=== PATIENT | male | born 1940 | race Caucasian/White ===

== ENCOUNTER 2020-10-20 11:12 | Inpatient (IN) | payer MEDICARE, OTHER ==
--- OUTSIDE RECORDS SUMMARY | 2020-10-20 14:55 | XMSREPORT ---
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 hydroCHLOROthiazide 25 mg tablet Take 1 tablet (25 mg) by mouth 1 time per day 90 tablet 2 metFORMIN (GLUCOPHAGE) 1000 MG tablet Take 1 tablet (1,000 mg) by mouth 2 times a day with tablet 0 oxyCODONE (OXY-IR) 5 mg tablet (immediate release) 1 tab for pain (4-7) q 4 hrs prn Or 2 tabs for pain (8-10) q4h prn pain 60 tablet 0 gabapentin (NEURONTIN) 300 mg capsule Take 1 capsule (300 mg) by mouth 3 times a day 90 capsule 2 tiZANidine (ZANAFLEX) 4 mg tablet Take 1 tablet (4 mg) by mouth at bedtime as needed for muscle spasm 90 tablet 4 metoprolol tartrate (LOPRESSOR) 50 mg tablet Take 1 tablet (50 mg) by mouth 2 times a day 180 tablet 1 atorvaSTATin (LIPITOR) 20 mg tablet Take 1 tablet (20 mg) by mouth every night at bedtime 90 tablet 1 glipiZIDE (GLUCOTROL) 10 mg tablet Take 1 tablet (10 mg) by mouth 1 time a day with breakfast 90tablet 1 amLODIPine (NORVASC) 5 mg tablet Take 1 tablet (5 mg) by mouth 1 time a day in the evening TAKE 1 TABLET BY MOUTH ONCE DAILY IN THE EVENING 90 tablet 1 No facility-administered medications prior to visit. Allergies No Known Allergies ROS Review of Systems Constitutional: Negative. HENT: Negative. Eyes: Negative. Respiratory: Negative. Cardiovascular: Negative. Gastrointestinal: Negative. Endocrine: Negative. Genitourinary: Negative. Musculoskeletal: Positive for arthralgias. Allergic/Immunologic: Negative. Neurological: Negative. Hematological: Negative. Psychiatric/Behavioral: Negative. Physical / Results BP 120/70 Pulse 72 Temp 97.3 F (36.3 C) (Temporal) Ht 1.803 m (5' 11") Wt 122.3 kg (269 lb 11.2 oz) BMI 37.62 kg/m2|| Physical Exam Constitutional: Appearance: Normal appearance. He is obese. HENT: Right Ear: Tympanic membrane normal. Left Ear: Tympanic membrane normal. Mouth/Throat: Mouth: Mucous membranes are moist. Cardiovascular: Rate and Rhythm: Normal rate and regular rhythm. Pulses: Dorsalis pedis pulses are 1+ on the right side and 1+ on the left side. Posterior tibial pulses are 1+ on the right side and 1+ on the left side. Pulmonary: Effort: Pulmonary effort is normal. Breath sounds: Normal breath sounds. Musculoskeletal: Right foot: No deformity. Left foot: No deformity. Feet: Right foot: Protective Sensation: 5 sites tested. 5 sites sensed. Skin integrity: Skin integrity normal. Left foot: Protective Sensation: 5 sites tested. 5 sites sensed. Skin integrity: Skin integrity normal. Skin: Comments: 2 small abrasions L thigh Neurological: General: No focal deficit present. Mental Status: He is alert. Diabetes foot exam Right foot Dorsalis pedis pulse-decreased Posterior tibial pulse-decreased Monofilament test-present Neuro vibratory sense-present Left foot Dorsalis pedis pulse-normal Posterior tibial pulse-decreased Monofilament test-present Neuro vibratory sense-present documented in this encounter Consult Notes Cynthia Sinha APRN-CNP - 10/18/2020 10:01 AM CDTAssociated Order(s): CONSULT INTERNAL MEDICINE Images from the original note were not included. HOSPITAL CONSULT NOTE Patient ID: Bakari Arroyo is a 80yr male. PCP: Chavo Lazar MD Attending Provider: Domingo Alexis MD CONSULT INTERNAL MEDICINE Consult performed by: Cynthia Sinha APRN-CNP Consult ordered by: Ramirez Sanders PA-C Impression / Plan #Diabetes mellitus type 2 Hold Metformin and glipizide while in the hospital Low-dose sliding scale insulin 3 times daily with meals, blood sugars before meals and at bedtime Hypoglycemia protocol Last hemoglobin A1c 7.6 on 09/30/2020 #Hypertension Continue metoprolol, hold if systolic blood pressure less than 100 or heart rate less than 60 Continue amlodipine, hold if systolic blood pressure less than 120 Hold lisinopril and hydrochlorothiazide until a.m. labs #History of DVT #Status post left total hip arthroplasty Managed by orthopedics Eliquis 2.5 mg twice daily for 70 doses for DVT prophylaxis per orthopedic preference Tylenol and tramadol scheduled for pain, oxycodone as needed Hemoglobin in a.m., preop hemoglobin 13.8 PT/OT to see Case management to assist with discharge planning. Patient plans to discharge home with his daughter. #Chronic back pain status post L5-S1 anterior lumbar interbody fusion with fusion revision #Hyperlipidemia Continue Lipitor #Obesity BMI 37.94 Chief Complaint / HPI HPI Bakari Arroyo is admitted under the orthopedic service status post left total hip arthroplasty on 10/18/2020. General anesthesia with EBL 250ml . Internal medicine consultation requested to assistwith co-managment postoperatively. Bakari was seen in the recovery room. He is drowsy but able to open his eyes to verbal stimuli. He currently denies any pain, chest pain, shortness of breath, nausea, and headache. He has not voided since surgery. Patient has had left hip pain for years. Preoperatively he rates his pain mild to moderate. He haddifficulty with ambulation and activities of daily living. He tried [id number] analgesics forpain control prior to surgery. He was using an assistive device at home. Preop labs reviewed: Hemoglobin 13.8 on 10/18/2020, creatinine 0.99, GFR 73 on 09/30/2020 EKG reviewed from 02/06/2019: Normal sinus rhythm Medications Current Facility-Administered Medications Medication nalOXone (NARCAN) injection solution (vial) 0.4 mg nalOXone (NARCAN) injection solution (vial) 0.2 mg ondansetron (ZOFRAN) injection solution 4 mg And prochlorperazine (COMPAZINE) 10 mg/2 mL injection solution 5 mg And diphenhydrAMINE (BENADRYL) injection solution 12.5 mg albuterol (PROVENTIL) (2.5 mg/3mL) 0.083% inhalation soln 2.5 mg racepinephrine (S-2) 2.25 % inhalation solution 0.5 mL diazePAM (VALIUM) injection solution 5 mg Or LORazepam (ATIVAN) 2 mg/mL injection solution 1 mg benzocaine-menthol (CEPACOL w/ BENZOCAINE) lozenge 1 lozenge lactated ringers IV solution fentaNYL 100 mcg/2 mL preservative free injection solution 50 mcg HYDROmorphone (DILAUDID) injection solution (conc: 1 mg/mL) 0.5 mg ondansetron (ZOFRAN) injection solution 4 mg ceFAZolin (ANCEF) 2000 mg/20 mL sterile water IV syringe Allergies No Known Allergies Medical / Surgical / Family History Past Medical History: Diagnosis Date Acute deep vein thrombosis of right lower extremity (HCC) 09/03/20142014, post op knee replacement Asymptomatic carotid artery stenosis, right Bruit of right carotid artery DDD (degenerative disc disease), cervical DDD (degenerative disc disease), lumbar Diabetes mellitus (HCC) 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 History of DVT (deep vein thrombosis) Hyperlipidemia Hypertension Obesity Past Surgical History: Procedure Laterality Date APPENDECTOMY ARTHROSCOPY KNEE DX WWO SYNOVIAL BX (SEP PROC) Left Arthroscopy, knee BACK SURGERY 04/02/2007 CAROTID ENDARTERECTOMY Right 07/29/2019 Procedure: RIGHT CAROTID ENDARTERECTOMY;; Surgeon: Randy Manriquez MD FUSION LUMBAR THORACIC SPINE N/A 02/05/2019 Procedure: ROBOTIC L3-S1 MINIMALLY INVASIVE TRANSFORAMINAL LUMBAR INTERBODY FUSION;; Surgeon: Jonel Jean MD FUSION LUMBAR THORACIC SPINE N/A 04/09/2020 Procedure: L4-5, L5-S1 ANTERIOR LUMBAR INTERBODY FUSION, L4-5, L5-S1 FUSION REVISION, WITH NEUROMONITORING;; Surgeon: Jonel Jean MD TONSILLECTOMY TOTAL KNEE Right 08/27/2014 Procedure: RIGHT TOTAL KNEE ARTHROPLASTY ;; Surgeon: Randy Lemus MD TOTAL KNEE Left 05/18/2015 Procedure: LEFT TOTAL KNEE ARTHROPLASTY ;; Surgeon: Randy Lemus MD Family History Problem Relation Age of Onset Other Father Pneumonia Stroke Mother CVA Arthritis Brother No Known Problems Brother No Known Problems Sister No Known Problems Maternal Grandmother No Known Problems Maternal Grandfather Stroke Paternal Grandmother No Known Problems Paternal Grandfather No Known Problems Daughter No Known Problems Daughter No Known Problems Daughter No Known Problems Son suicide Lymphoma Son No Known Problems Son No Known Problems Son No Known Problems Son Social History Social History Tobacco Use Smoking status: Former Smoker Packs/day: 0.50 Years: 10.00 Pack years: 5.00 Types: Cigarettes, Pipe Start date: 09/04/1954 Quit date: 03/12/1984 Years since quittin.6 Smokeless tobacco: Never Used Tobacco comment: Pipe #/Week (Packs/Day) 5, Pipe Date Quit 03/12/1984 Substance Use Topics Alcohol use: No Alcohol/week: 0.0 standard drinks Drug use: No ROS Review of Systems Constitutional: Negative. HENT: Negative. Eyes: Negative. Respiratory: Negative for chest tightness and shortness of breath. Cardiovascular: Negative for chest pain. Gastrointestinal: Negative for nausea and vomiting. Genitourinary: Positive for difficulty urinating. Musculoskeletal: Positive for arthralgias. Skin: Negative. Neurological: Negative for headaches. Hematological: Negative. Psychiatric/Behavioral: Negative. Physical Exam BP 157/73 | Pulse 65 | Temp 96.7 F (35.9 C) | Resp 16 | Ht 1.803 m (5' 11") | Wt 123.4 kg (272 lb 0.8 oz) | SpO2 96% | BMI 37.94 kg/m Physical Exam Vitals and nursing note reviewed. Constitutional: General: He is not in acute distress. Appearance: He is well-developed. He is obese. He is not diaphoretic. HENT: Head: Normocephalic and atraumatic. Eyes: Conjunctiva/sclera: Conjunctivae normal. Cardiovascular: Rate and Rhythm: Normal rate. Rhythm irregular. Pulses: Normal pulses. Heart sounds: Normal heart sounds. No murmur heard. No friction rub. No gallop. Pulmonary: Effort: Pulmonary effort is normal. No respiratory distress. Breath sounds: Normal breath sounds. No wheezing or rales. Abdominal: General: Bowel sounds are normal. There is no distension. Palpations: Abdomen is soft. Tenderness: There is no abdominal tenderness. Musculoskeletal: Cervical back: Normal range of motion. Left hip: Decreased range of motion. Skin: General: Skin is warm and dry. Neurological: Mental Status: He is alert and oriented to person, place, and time. Psychiatric: Behavior: Behavior normal. Thought Content: Thought content normal. Judgment: Judgment normal. Labs Labs (Last day) 10/18/20 06 - 10/18/20 06 CBC 10/18/20602 CBC Hemoglobin 13.5-17.5 (g/dL) 13.8 10/18/20 0603 - 10/18/20 06 CHEMISTRY 10/18/20602 CHEMISTRY Potassium 3.5-5.3 (meq/L) 3.7 10/18/20 0931 - 10/18/20620 GLUCOSE POINT OF CARE 10/18/2031 10/18/20620 GLUCOSE POINT OF CARE Glucose POC 70-99 (mg/dL) 228 175 Medical Decision Making MDM Reviewed: previous chart, nursing note and vitals Reviewed previous: ECG and labs documented in this encounter Miscellaneous Notes Physical Therapy - Elke Luna, PT - 10/20/2020 9:17 AM CDT Physical Therapy Orthopedic Discharge Note Date: 10/20/2020 Subjective: Alert and Oriented. Reports pain is better today. Precautions: Left JOE--standard posterior precautions, WBAT Recommendation/Assessment: Patient requiring assist for all mobility. Recommend continued therapies at inpatient setting prior to discharge home independently. Patient now in agreement. Family/high school sports coach present for PT session: No (see flowsheet) Objective: Lab Results Component Value Date HEMOGLOBIN 11.2 (L) 10/20/2020 Supine to/from sit: Minimal assist with left LE and trunk, plus use of bedrail Sit to/from stand: Minimal/contact guard assist of 1 from elevated bed, cues for hand placement and sequencing Sitting Balance: Fair+ Standing Balance: Fair+ with FWW Gait: Ambulated 110 feet with FWW, contact guard assist plus recliner follow, emerging reciprocal pattern with cues and practice Stairs: NA Exercises: Patient completes 10 reps of exercise with surgical LE which includes: ankle pumps, quad/ham/glut sets of fair quality , and heel slide/abduction slide and SAQ with sheet plus minimal assistance; SAQ independently after set up. Pain: (0-10 scale) At rest: 2 With Activity: 5 Education: Patient was educated on precautions, exercise progression, transfer techniques, gait and mobility progression today through explanation, demonstration and handout. They accepted teaching and verbalized understanding and demonstrated understanding. Equipment: Patient transferring to another inpatient facility-no equipment provided. Assessment: Patient needs continued reinforcement for safe mobility. Goals: Progressing toward goals. Plan: Patient will be discharged to [facility] for continued therapies prior to discharge home independently. Time Treatment Occurred: 845 Gait: 10 Minutes Therapeutic Exercise: 15 minutes Therapeutic Activity: 5 Minutes TOTAL TIMED CODES: 30 minutes TREATMENT TOTAL TIME: 30 Minutes ase Lore - Kelsie Aviles RN - 10/20/2020 8:14 AM CDT CASE MANAGEMENT / SOCIAL SERVICE FINAL TRANSITION PLAN TRANSITION DATE: 10/20 TRANSITION TIME: 1100 INTENDED PAYER SOURCE FOR AGENCY: Medicare TRANSITION DESTINATION: [facility] DOES ACCEPTING FACILITY REQUIRE COVID TESTING BEFORE DISCHARGE: Facility does not require as patient has been vaccinated. TRANSITION TRANSPORTATION: Family Car TRANSPORTATION PAYMENT: Not applicable TRANSITION CHOICES OFFERED: Home Health: Nurse and Physical Therapy Home: Family/Friend Support Outpatient Therapy: Physical Therapy Long Term Facility Swing Bed Transitional Care PATIENT / SUBSTITUTE DECISION MAKER GOAL UPON TRANSITION: First Choice: Swing bed TRANSITION PLAN REVIEWED WITH AND AGREED UPON BY: Patient Bedside nurse Charge nurse PT Providers PROVIDED PATIENT / FAMILY WITH VERBAL / WRITTEN EXPLANATION OF MEDICARE OR INSURANCE COVERAGE OF [facility] FACILITY Yes RESOURCE(S) PROVIDED: Placement and Transportation DOES THE PATIENT HAVE A PRIMARY CARE PHYSICIAN? Yes Chavo Lazar MD ANTICIPATED MODE OF TRANSPORT TO AND FROM FOLLOW UP APPOINTMENTS: Family Car VERIFIED CORRECT PHARMACY IS ENTERED FOR DISCHARGE: Reconcile medications as Patient Transfer ("65 button") METHOD OF PRESCRIBING MEDICATIONS: Reconcile medications as Patient Transfer ("65 button") PATIENT DISCUSSED IN TRANSITION ROUNDS / OUTLIER ROUNDS: Yes COMMENTS / PATIENT AND FAMILY RESPONSE TO PLAN: Discussed with interdisciplinary team. [facility] has offered a bed and has received insurance approval to admit patient today. Patient is agreeable. He will contact his family for a ride. Sonya in admissions at [facility] has been kept updated. [place] pre-admission screen completed on this date. Your information has been submitted on October at 08:14:15 AM CDT. The confirmation number is [id number] Interdisciplinary team updated. Will continue to follow providers and therapy recommendations for safe discharge planning. Will continue to reassess any discharge needs. CURRENT READMISSION RISK SCORE / HANDOFF: Predictive Risk Score Risk of Unplanned Readmission: 13.6 Handoff given: N/A SPECIAL TRANSITION DAY INSTRUCTIONS TO NURSE / MD: Discharge to Swing Bed. Please place interagency orders per unit policy. Bedside RN, please call report to: P: [phone] Please fax discharge information per unit policy to: F: [phone] Pharmacy: Reconcile medications as Patient Transfer ("65 button") SIGNED: Kelsie Aviles RN Case Manager - Orthopedics [facility] are Planning - Jasmine Santiago RN - 10/20/2020 6:55 AM CDT Problem: PHYSICAL COMFORT Goal: CLIENT SATISFACTION: PAIN MANAGEMENT Description: DEFINITION: Extent of positive perception of nursing care to relieve pain. 1=Not at all satisfied, 2=Somewhat satisfied, 3=Moderately satisfied, 4=Very satisfied, 5=Completely satisfied. Outcome: NOC Rating 3 Flowsheets (Taken 10/20/202032) Initial Score: 3 Target Score: 5 Plan of care reviewed with: Patient Patient specific goal for the day: Pain will be controlled with scheduled and PRN pain PO medications. Patient specific goal for the stay: Patient will return to baseline, with no complaints of pain by discharge. Achieve goal for stay: By discharge Patient Progress: Patient had scheduled PO pain medications which was effective. Patient currently resting. Problem: INEFFECTIVE HEALTH MANAGEMENT Goal: BLOOD GLUCOSE LEVEL Description: DEFINITION: Extent to which glucose levels in plasma and urine are maintained in normal range. 1=Severe deviation from normal range, 2=Substantial deviation from normal range, 3=Moderatedeviation from normal range, 4=Mild deviation from normal range, 5=No deviation from normal range. Outcome: NOC Rating 3 Flowsheets (Taken 10/20/202032) Initial Score: 3 Target Score: 4 Plan of care reviewed with: Patient Patient specific goal for the day: Patient's blood glucose will be within normal limit during the shift. Patient specific goal for the stay: Maintain blood glucose at baseline during stay. Patient Progress: Patient had 2 units of sliding scale insulin for blood glucose of 195 mg/dl this morning. hysical Therapy - Elke Luna PT - 10/19/2020 3:20 PM CDT Physical Therapy Orthopedic Treatment Note Date: 10/19/2020 Subjective: Alert and Oriented. Precautions: Left JOE--standard posterior precautions, WBAT Recommendation/Assessment: Patient requiring assist for all mobility. Recommend TCU. Patient stillhopeful to discharge home with family assist. Will continue to assess discharge needs/location as patient progresses. Family/high school sports coach present for PT session: No (see flowsheet) Objective: Lab Results Component Value Date HEMOGLOBIN 10.9 (L) 10/19/2020 Supine to/from sit: Moderate assist with left LE and trunk, plus use of bedrail Sit to/from stand: Minimal assist of 1 from elevated bed, cues for hand placement and sequencing Sitting Balance: Fair+ Standing Balance: Fair with FWW Gait: Ambulated 80 feet with FWW, contact guard assist plus recliner follow, semi-reciprocating pattern with cues and practice Stairs: NA Exercises: Patient completes 10 reps of exercise with surgical LE which includes: ankle pumps, quad/ham/glut sets of fair quality , and heel slide/abduction slide and SAQ with sheet plus moderate assistance; SAQindependently after set up. Pain: (0-10 scale) At rest: 4 With Activity: 8 Education: Patient was educated on precautions, exercise progression, transfer techniques, gait and mobility progression today through explanation, demonstration and handout. They accepted teaching and verbalized understanding and demonstrated understanding. Plan: Continue with PT plan of care. Time Treatment Occurred: 1305 Gait: 10 Minutes Therapeutic Exercise: 15 minutes Therapeutic Activity: 5 Minutes TOTAL TIMED CODES: 30 minutes TREATMENT TOTAL TIME: 30 Minutes ase Mgmt - Kelsie Aviles RN - 10/19/2020 2:50 PM CDT CASE MANAGEMENT PROGRESS NOTE Therapy continues to recommend placement. [facility] is able to offer a bed pending insurance approval. Patient has been updated and is in agreement. [facility] will submit insurance prior auth today. Will continue to send updated notes as needed for insurance authorization. SIGNED: Kelsie Aviles RN Case Manager - Orthopedics [facility] YesicaBharath ramirez [place] are Planning - Sanjuanita Han RN - 10/19/2020 12:25 PM CDT Problem: PHYSICAL COMFORT Goal: CLIENT SATISFACTION: PAIN MANAGEMENT Description: DEFINITION: Extent of positive perception of nursing care to relieve pain. 1=Not at all satisfied, 2=Somewhat satisfied, 3=Moderately satisfied, 4=Very satisfied, 5=Completely satisfied. Outcome: NOC Rating 3 Flowsheets (Taken 10/19/2020 1224) Initial Score: 3 Target Score: 5 Plan of care reviewed with: Patient Patient specific goal for the day: The pt will have a tolerable pain level throughout the shift. Patient specific goal for the stay: The will manage their pain with PO pain medications. Achieve goal for stay: By discharge Patient Progress: Patient experienced discomfort after therapy. Medication was given. Patient currently resting in bed. hysical Therapy - Elke Luna PT - 10/19/2020 12:04 PM CDT Physical Therapy Orthopedic Treatment Note Date: 10/19/2020 Subjective: Alert and Oriented. Reports high pain levels. Precautions: Left JOE--standard posterior precautions, WBAT Recommendation/Assessment: Patient requiring assist for all mobility. Recommend TCU. Patient stillhopeful to discharge home with family assist. Will continue to assess discharge needs/location as patient progresses. Family/high school sports coach present for PT session: No (see flowsheet) Objective: Lab Results Component Value Date HEMOGLOBIN 10.9 (L) 10/19/2020 Supine to/from sit: Moderate assist with left LE and trunk, plus use of bedrail Sit to/from stand: Minimal assist of 2 from significantly elevated bed, cues for hand placement andsequencing Sitting Balance: Fair+ Standing Balance: Fair with FWW Gait: Ambulated 8 feet with FWW, minimal assist of 1 plus recliner follow, step to pattern due to pain Stairs: NA Exercises: Patient completes 10 reps of exercise with surgical LE which includes: ankle pumps, quad/ham/glut sets of fair quality , and heel slide/abduction slide and SAQ with sheet plus moderate assistance; SAQindependently after set up. Pain: (0-10 scale) At rest: 4 With Activity: 10 Education: Patient was educated on precautions, exercise progression, transfer techniques, gait and mobility progression today through explanation, demonstration and handout. They accepted teaching and verbalized understanding and demonstrated understanding. Plan: Continue with PT plan of care. Time Treatment Occurred: 910 Gait: 0 Minutes Therapeutic Exercise: 15 minutes Therapeutic Activity: 15 Minutes TOTAL TIMED CODES: 30 minutes TREATMENT TOTAL TIME: 30 Minutes ase Lore - Kelsie Aviles RN - 10/19/2020 10:05 AM CDT CASE MANAGEMENT / SOCIAL SERVICE TRANSITION PLAN - PROGRESS NOTE PLAN: goal is home vs TCU/SNF/Swing bed Prior auth will be required if placement is needed. BARRIERS TO TRANSITION: Awaiting Placement: Long Term/Swing Bed/TCU Awaiting Therapy Recommendations Medical barriers:pain control, mobility, placement DOES ACCEPTING FACILITY REQUIRE COVID TESTING BEFORE DISCHARGE: Will be dependent on admitting facility's policy. Patient has received both Moderna vaccines (/ and /). COMMENTS / PATIENT AND FAMILY RESPONSE TO PLAN: Discussed with interdisciplinary team. Therapy recommending placement. Met with patient. Reviewed therapy recommendations. His goal remains home at discharge but is open to considering placement at either [facility] (first choice) or [facility] swing bed. He stated his daughter does live nearby but wouldn't be able to help much as "she is very busy." Profile sent to facilities listed above. Encouraged patient to consider placement and to further discuss with his family. He voiced understanding. IS PATIENT'S ADMISSION ASSOCIATED WITH TIA, ISCHEMIC, OR HEMORRHAGIC STROKE?: No PATIENT / SUBSTITUTE DECISION MAKER GOAL UPON TRANSITION: First Choice: Home: Family/Friend Support Second Choice: Long Term Facility Swing Bed Transitional Care ANTICIPATED NEEDS UPON TRANSITION: Long Term Facility Swing Bed Transitional Care RESOURCE(S) PROVIDED: Placement ANTICIPATED MODE OF TRANSPORT UPON TRANSITION: Family Car ANTICIPATED MODE OF TRANSPORT TO AND FROM FOLLOW UP APPOINTMENTS: Family Car VERIFIED CORRECT PHARMACY IS ENTERED FOR DISCHARGE: No - will update once discharge disposition is known TRANSITION ROUNDING COMPLETED WITH THE FOLLOWING: Patient / family [employer] Security Officer Attending MD FIRE POT OPERATOR / PA Bedside daub color mixer RN Discussed in person SIGNED: Kelsie Aviles RN Case Manager - Orthopedics [facility] are Planning - Yu Eugene RN - 10/18/2020 6:35 PM CDT Problem: PHYSICAL COMFORT Goal: CLIENT SATISFACTION: PAIN MANAGEMENT Description: DEFINITION: Extent of positive perception of nursing care to relieve pain. 1=Not at all satisfied, 2=Somewhat satisfied, 3=Moderately satisfied, 4=Very satisfied, 5=Completely satisfied. Outcome: NOC Rating 4 Flowsheets (Taken 10/18/2020 5951) Patient specific goal for the day: The pt will have a tolerable pain level throughout the shift. Patient specific goal for the stay: The will manage their pain with PO pain medications. Note: Pt states pain is 5/10. Pt states he is pretty comfortable with his pain while not moving. Scheduled tylenol given. Will continue to monitor. Problem: IMPAIRED PHYSICAL MOBILITY Goal: MOBILITY Description: DEFINITION: Ability to move purposefully in own environment independently with or without assistive device. 1=Severely compromised / Total assistance: Performs less than 25% of activity; 2=Substantially compromised / Maximal assistance: Performs 25-49% of activity; 3=Moderately compromised / Moderate assistance: Performs 50-74% of activity; 4=Mildly compromised / Modified independence: Needs assistive device, supervision, minimal contact,or safety is a concern; 5=Not compromised / Complete independence. Outcome: NOC Rating 4 Flowsheets (Taken 10/18/2020 8646) Patient specific goal for the day: Pt will ambulate with therapies and staff during the shift. Patient specific goal for the stay: Pt will work with PT/OT during their hospital stay in order to increase ROM needed for d/c. Note: Pt has just dangled since surgery. Pt became slightly dizzy while dangling. Will continue to monitor. Kelsie Castro RN - 10/18/2020 2:53 PM CDT CASE MANAGEMENT / SOCIAL SERVICE TRANSITION PLAN - INITIAL ASSESSMENT TRANSITION PLAN: goal is home with family support BARRIERS TO TRANSITION: Awaiting Therapy Recommendations / progress towards goals for safety Medical barriers: pain control, nausea, dizziness, drowsiness COMMENTS / PATIENT AND FAMILY RESPONSE TO PLAN: Discussed with interdisciplinary team. Met with patient at the patient's bedside. Introduced Case Management and role in patient care. Patient lives with his spouse, Masha in [place], [place]. Patient was independent with ADLs prior to this admissions. His daughter, Stefany, lives nearby. Patient's goal upon discharge is to return home withhis spouse's support. Education provided in regards to anticipated plan of care. Encouraged patientto voice any concerns. Patient voiced understanding. Questions answered. Will continue to follow providers and therapy recommendations for safe discharge planning. Will continue to reassess any discharge needs. ADMISSION DX: Primary osteoarthritis of left hip [M16.12] PATIENT STATUS: Admit w/ Surgery RELEASE OF INFORMATION: Yes -- verbal for: discharge planning SOURCES OF INFORMATION (See demographics for contact information): Medical Doctor Medical Record Nurse: Bedside Nurse Practitioner/Physician's Wire Twisting Machine Operator Occupational Therapy Patient Physical Therapy CURRENT LIVING SITUATION / LEVEL OF ASSISTANCE: Lives with spouse Independent Lives in a mobile home with 3 stairs to enter. Has 0 stairs to bedroom/bathroom. COMMUNITY SERVICES: None HEALTHCARE DIRECTIVE: No POWER OF END MATCHER: None FINANCIAL CONCERNS: No Concerns PRIMARY CARE PHYSICIAN: Yes Chavo Lazar MD [phone] [place] [address] / [facility] [id number] : No IS PATIENT'S ADMISSION ASSOCIATED WITH TIA, ISCHEMIC, OR HEMORRHAGIC STROKE?: No LANGUAGE / COMMUNICATION BARRIERS: No PATIENT / SUBSTITUTE DECISION MAKER GOAL UPON TRANSITION: First Choice: Home with family support ANTICIPATED NEEDS, TRANSITION CHOICES OFFERED: Home with family support REFERRAL(S) MADE: No, not at this time RESOURCE(S) PROVIDED: Nothing needed at this time DOES PATIENT HAVE CLOTHING TO WEAR AT DISCHARGE? Yes ANTICIPATED MODE OF TRANSPORT UPON DISCHARGE: Family Car - spouse/son to drive VERIFIED CORRECT PHARMACY IS ENTERED FOR DISCHARGE: Yes - Pharm[facility]: . [facility] [address] [address] [address] CURRENT READMISSION RISK SCORE Predictive Risk Score Risk of Unplanned Readmission: 8 Please refer to readmission risk assessment flowsheet for further details. SIGNED: Kelsie Aviles RN Case Manager - Orthopedics [facility] are Planning - Marisela Barnard RN - 10/18/2020 2:04 PM CDT Problem: IMPAIRED PHYSICAL MOBILITY Goal: MOBILITY Description: DEFINITION: Ability to move purposefully in own environment independently with or without assistive device. 1=Severely compromised / Total assistance: Performs less than 25% of activity; 2=Substantially compromised / Maximal assistance: Performs 25-49% of activity; 3=Moderately compromised / Moderate assistance: Performs 50-74% of activity; 4=Mildly compromised / Modified independence: Needs assistive device, supervision, minimal contact,or safety is a concern; 5=Not compromised / Complete independence. Outcome: NOC Rating 2 Flowsheets (Taken 10/18/2020 1386) Initial Score: 2 Target Score: 4 Plan of care reviewed with: Patient Patient specific goal for the day: Pt will ambulate with therapies and staff during the shift. Patient specific goal for the stay: Pt will work with PT/OT during their hospital stay in order to increase ROM needed for d/c. Achieve goal for stay: By discharge Patient Progress: The pt has been sleepy since surgery but did work with PT and dangled. Pt did not tolerate wll and was dizzy. Pt is still up with 2 assist, gait belt and FWW. Therapies will work withthe pt tomorrow. Placement encouraged for pt after stay. Problem: PHYSICAL COMFORT Goal: CLIENT SATISFACTION: PAIN MANAGEMENT Description: DEFINITION: Extent of positive perception of nursing care to relieve pain. 1=Not at all satisfied, 2=Somewhat satisfied, 3=Moderately satisfied, 4=Very satisfied, 5=Completely satisfied. Outcome: NOC Rating 3 Flowsheets (Taken 10/18/2020 1358) Initial Score: 2 Target Score: 4 Plan of care reviewed with: Patient Patient specific goal for the day: The pt will have a tolerable pain level throughout the shift. Patient specific goal for the stay: The will manage their pain with PO pain medications. Achieve goal for stay: By discharge Patient Progress: The pt has c/o increased pain after dangling With PT. Pt is still very drowsy after surgery and educated on wanting pt to be more alert when getting narcotics. Pt was repositioned forcomfort and ice applied. Abdution device is in place. Problem: INEFFECTIVE HEALTH MANAGEMENT Goal: BLOOD GLUCOSE LEVEL Description: DEFINITION: Extent to which glucose levels in plasma and urine are maintained in normal range. 1=Severe deviation from normal range, 2=Substantial deviation from normal range, 3=Moderatedeviation from normal range, 4=Mild deviation from normal range, 5=No deviation from normal range. Outcome: NOC Rating 3 Flowsheets (Taken 10/18/2020 2622) Initial Score: 2 Target Score: 4 Plan of care reviewed with: Patient Patient specific goal for the day: Pt will have maintain a WNL blood glucose level during the shift. Patient specific goal for the stay: The pt will have a WNL Blood glucose level during their stay. Achieve goal for stay: By discharge Patient Progress: The pt had surgery today and had an increased Blood sugar level. With snack sliding scale insulin was given (see MAR). Will continue to monitor and assess. Clinical Team - Marisela Barnard RN - 10/18/2020 10:30 AM CDT Pt arrived from the PACU at 1030. Report received from Alicja Ibanez RN. IVF were started as ordered. Pt denies pain at this time. Bed is in lowest position, 2x side rails are up. Patient education included but not limited to fall risk prevention, call light system, diet, therapy schedule, pain medications prescribed, DVT prevention and any other question were answered. Gown was changed and settled to their room with call light and water in reach. CARE rounding will be completed. Dual skin check completed with Alicja Ibanez RN. All pressure points were found to be WDL. Plan/Intervention moisture prevention, ambulation when able and use of pressure redistribution mattress when in bed. Will continue to monitor and assess. Operative Note - Domingo Alexis MD - 10/18/2020 9:18 AM CDT Operative Note Bakari Arroyo is a 80yr old male admitted on 10/18/2020 5:38 AM. Attending Physician: Domingo Alexis MD Patient Type: Admit w/ Surgery Operative Date: 10/18/2020 Surgeon: Surgeon(s) and Role: * Domingo Alexis MD - Primary Wire Twisting Machine Operator: Police Captain : Anastasia Saucedo RN; Tejal Trujillo RN; Ly Granda RN Scrub Person : Rani Ferrer, ATTENDANT CHILD ACTIVITY; Ning Braun, ATTENDANT CHILD ACTIVITY Outreach Director: Ramirez Sanders PA-C Pre-Operative Diagnosis: Pre-Op Diagnosis Codes: * Primary osteoarthritis of left hip [M16.12] Post-Operative Diagnosis: Post-Op Diagnosis Codes: * Primary osteoarthritis of left hip [M16.12] Anesthesia Type: general Anesthesia Staff: Anesthesiologist: Debbi Albert MD BUSINESS ANALYTICS INTERN: Shiela Hawthorne APRN-YVONNE Operative Procedure: Procedure(s): LEFT TOTAL HIP ARTHROPLASTY - Wound Class: Clean Procedure Description: Dictation #1 [id number]:[id number] The skilled assistance of the PA was necessary for the successful completion of the case and was essential for positioning, manipulation of instruments, exposure, manipulation of tissue and assisting with wound closure and dressing application. A qualified resident was not available to assist with thecase. Findings: DJD Specimen Removal ID Type Source Tests Collected by Time A : Left Hip Bone and Tissue Bone Hip TISSUE EXAM Domingo Alexis MD 10/18/2020 0736 Implants Implant Name Type Inv. Item Serial No. Cardiovascular Technologist Lot No. LRB No. Used Action HIP LNR G7 PE DUAL SZF 44MM N [id number] EA1 - [id number] Total Jt Hip HIP LNR G7 PE DUAL SZF 44MM N [id number] [place] [address] [id number] Left 1 Implanted HIP SHELL G7 PPS 3HL F 56MM N [id number] EA1 - [id number] Total Jt Hip HIP SHELL G7 PPS 3HL F 56MM N [id number] EA1 SEVERO [id number] Left 1 Implanted HIP STEM TAPERLOC REV [id number] N 51-828005 EA1 - [id number] Total Jt Hip HIP STEM TAPERLOC REV [id number] N 51-505059 EA1 SEVERO [id number] Left 1 Implanted HIP HD BIOLOX CER ZIMM 28MM +0 N 650-1158 EA1 - [id number] Total Jt Hip HIP HD BIOLOX CER ZIMM 28MM +0 N 650-1158 EA1 SEVERO [id number] Left 1 Implanted HIP LNR VIVACIT-E [id number] N [id number] EA1 - [id number] Total Jt Hip HIP LNR VIVACIT-E [id number] N [id number] EA1 SEVERO [id number] Left 1 Implanted Estimated Blood Loss: 250 mL Discharge Plan:PACU documented in this encounter Plan of Treatment Date Type Specialty Care Team Description 11/02/2020 Ancillary Procedure Radiology 11/02/2020 Office Visit General Surgery Randy Manriquez MD [address] [place], [place] [address] [address] [phone] 11/03/2020 Office Visit Orthopedics Ramirez Sanders PA-C [address] [place] [address] [place] [address] [phone] 11/26/2020 Office Visit Orthopedics Domingo Alexis M D [facility] [place] [address] [phone] 04/01/2021 Office Visit Family Practice Chavo Lazar MD [address] [facility] [place] [address] [phone] Name Type Priority Associated Diagnoses Date/Ti me TISSUE EXAM PATH Routine Primary osteoarthritis of le ft hip 10/18/2020 7:36 AM CDT Name Type Priority Associated Diagnoses Order S chedule TISSUE EXAM PATH Routine Primary osteoarthritis of le ft Release Upon Ordering for 1 hip Occurrences sta rting 10/18/2020 documented as of this encounter Implants Implanted Type Area Cardiovascular Technologist Device Shelf Model / Identifier Expiration Serial / Date Lot Allo Bone Osteoamp Select 10cc N Oasf-10 Ea1 - [id number] B one/Tissue/Allo Bilatera [employer] 09/05/2023 OASF-10 / Implanted: Qty: 1 on 02/05/2019 by Jonel Jean MD at [facility] graft l: [id number] / LUMBAR Allo Bone Osteoamp Select 10cc N Oasf-10 Ea1 - [id number] Bone/T issue/Allo N/A: [employer] 08/09/2024 OASF-10 / Implanted: Qty: 1 on 04/09/2020 by Jonel Jean MD at [facility] graft SPINE [id number] / LUMBAR 2024-08-09 Patch Vascuguard 0.8x8cm N [id number] Ea1 - [id number] Cardiovascul ar Right: HUERTA 01/09/2024 [id number] / Implanted: 07/29/2019 by Randy Manriquez MD at [facility] (Quantity not on file) NECK / [id number] Spacer Magnify-S 8d 50b16ge N 1126.0112 Ea1 - [id number] ENT/Den ashley/Plast N/A: [employer] 04/12/2021 1126.0112 / Implanted: Qty: 1 on 04/09/2020 by Jonel Jean MD at [facility] ics SPINE / LUMBAR NA Screw Creo Seb 6.5x45mm N 1067.4645 Ea1 - S. Neurology Bilatera [facility] 02/06/2020 1067.4645 / Implanted: Qty: 2 on 02/05/2019 by Jonel Jean MD at [facility] l: . / LUMBAR . Screw Creo Seb 6.5x50mm N 1067.4650 Ea1 - S. Neurology Bilatera [facility] 02/06/2020 1067.4650 / Implanted: Qty: 4 on 02/05/2019 by Jonel Jean MD at [facility] l: . / LUMBAR . Screw Creo Seb 6.5x55mm N 1067.4655 Ea1 - S. Neurology [facility] 02/06/2020 1067.4655 / Implanted: Qty: 2 on 02/05/2019 by Jonel Jean MD at [facility] l: . / LUMBAR . [place] Pa Rdctn [id number] N 1134.0100 Ea1 - S. Neurology [facility] 02/06/2020 1134.0100 / Implanted: Qty: 8 on 02/05/2019 by Jonel Jean MD at [facility] l: . / LUMBAR . Cap Lk Creo For Screw N 1134.0010 Ea1 - S. Neurology [facility] 02/06/2020 1134.0010 / Implanted: Qty: 8 on 02/05/2019 by Jonel Jean MD at [facility] l: . / LUMBAR . Spacer Rise 8-14mm 10d 8x22mm N 193.021 Ea1 - S. Neurology [facility] 02/06/2020 193.021 / Implanted: Qty: 2 on 02/05/2019 by Jonel Jean MD at [facility] l: . / LUMBAR . Frantz Creo Mis Curv 5.5x90mm N 1134.7090 Ea1 (Aka 1134.7090#) - S. Neurology [facility] 02/06/2020 1134.7090 / Implanted: Qty: 2 on 02/05/2019 by Jonel Jean MD at [facility] l: . / LUMBAR . Screw Slfdr Va 5.5x30mm N 176.730 Ea1 - [id number] Neurology N/A: [facility] 176.730 / Implanted: Qty: 1 on 04/09/2020 by Jonel Jean MD at [facility] SPINE / LUMBAR Screw Slfdr Va 5.5x30mm N 176.730 Ea1 - [id number] Neurology N/A: [facility] 176.730 / Implanted: Qty: 1 on 04/09/2020 by Jonel Jean MD at [facility] SPINE / LUMBAR Screw Slfdr Va 5.5x30mm N 176.730 Ea1 - [id number] Neurology N/A: [employer] 176.730 / Implanted: Qty: 1 on 04/09/2020 by Jonel Jean MD at [facility] SPINE / LUMBAR Cmnt Simplex P W Tobramyacin N 6197-9 Bx10/Ea - Sn/A Ortho O ther Right: MELITA 05/10/2015 6197-9-001 / Implanted: Qty: 1 on 08/27/2014 by Randy Mccurdy MD at [facility] KNEE N/A / [id number] Description:Verified by Dr. Lemus and surgical team Cmnt Simplex P W Tobramyacin N 6197-9 Bx10/Ea - Sn/A Ort ho Other Right: KNEE MELITA 05/10/2015 6197-9-001 / Implanted: Qty: 1 on 08/27/2014 by Randy Mccurdy MD at [facility] N/A / [id number] Description:Verified by Dr. Lemus and surgical team Cmnt Simplex P W Tobramyacin N 6197-9- Bx10/Ea - Sna Ortho Ot her Left: KNEE MELITA 06/09/2016 6197-9-001 / Implanted: Qty: 1 on 05/18/2015 by Randy Mccurdy MD at [facility] NA / [id number] Description:ALL IMPLANTS VERIFIED WITH S URGICAL TEAM PER PROTOCOL Cmnt Simplex P W Tobramyacin N 6197-9-010 Bx10/Ea - Sna Ortho Ot her Left: KNEE MELITA 06/09/2016 6197-9-010 / Implanted: Qty: 1 on 05/18/2015 by Randy Mccurdy MD at [facility] NA / [id number] Description:ALL IMPLANTS VERIFIED WITH S URGICAL TEAM PER PROTOCOL Scaf Bone Infuse Xs 1.4cc N [id number] Ea1 - [id number] Tissue N/A: SPINE [employer] 04/11/2020 [id number] / Implanted: Qty: 1 on 04/09/2020 by Jonel Jean MD at [facility] Synthetic LUMBAR / [id number] Hip Lnr G7 Pe Dual Szf 44mm N [id number] Ea1 - [id number] Total J t Hip Left: HIP SEVERO 08/05/2030 [id number] / Implanted: Qty: 1 on 10/18/2020 by Domingo Alexis MD at [facility] / [id number] Hip Shell G7 Pps 3hl F 56mm N 195318071 Ea1 - [id number] Total J t Hip Left: HIP SEVERO 05/25/2030 [id number] / Implanted: Qty: 1 on 10/18/2020 by Domingo Alexis MD at [facility] / [id number] Hip Stem Taperloc Rev Xpgcpt21 N 51-610593 Ea1 - [id number] Total Jt Hip Left: HIP SEVERO 04/20/2030 51-046028 / Implanted: Qty: 1 on 10/18/2020 by Domingo Alexis MD at [facility] / [id number] Hip Hd Biolox Cer Zimm 28mm +0 N 650-1158 Ea1 - [id number] T otal Jt Hip Left: HIP SEVERO 05/25/2030 650-1158 / Implanted: Qty: 1 on 10/18/2020 by Domingo Alexis MD at [facility] / [id number] Hip Lnr Vivacit-E 88w14ez N [id number] Ea1 - [id number] Total Jt Hip Left: HIP SEVERO 08/02/2025 [id number] / Implanted: Qty: 1 on 10/18/2020 by Domingo Alexis MD at [facility] / [id number] Knee Tib Insrt Attune Sz9 7mm N 8595-97-769 Ea - Sn/A Total Jt K nee Right: KNEE [employer] 04/11/2018 1514-53-868 / Implanted: Qty: 1 on 08/27/2014 by Randy Mccurdy MD at [facility] N/A / [id number] Description:Implant verified by Dr. Janusz dick and surgical team Knee Tib Base Attune Depu Sz7 N 150 Ea - Sn/A Total Jt K nee Right: KNEE [employer] 03/11/2024 150 / Implanted: Qty: 1 on 08/27/2014 by Randy Mccurdy MD at [facility] N/A / [id number] Description:Implant verified by Dr. Janusz dick and surgical team Knee Fem Attune Depu Rt Sz9 N 150 Ea - Sn/A Total Jt Kne e Right: KNEE [employer] 11/10/2023 150 / Implanted: Qty: 1 on 08/27/2014 by Randy Mccurdy MD at [facility] N/A / [id number] Description:Implant verified by Dr. Janusz dick and surgical team Knee Ptla Attune Depu 38mm N 151 Ea - Sn/A Total Jt Knee Right: KNEE [employer] 11/09/2018 151 / Implanted: Qty: 1 on 08/27/2014 by Randy Mccurdy MD at [facility] N/A / [id number] Description:Implant verified by Dr. Janusz dick and surgical team Knee Tib Base Attune Depu Sz7 N 150 Ea - Sna Total Jt Kn ee Left: KNEE [employer] 03/11/2025 150 / Implanted: Qty: 1 on 05/18/2015 by Randy Mccurdy MD at [facility] NA / [id number] Description:ALL IMPLANTS VERIFIED WITH S URGICAL TEAM PER PROTOCOL Knee Ptla Attune Dome [id number] N 1518 Ea - Sna Total Jt Left: PATELLA [employer], 08/10/2019 1518-038 / Implanted: Qty: 1 on 05/18/2015 by Randy Mccurdy MD at [facility] [employer] NA / [id number] Description:ALL IMPLANTS VERIFIED WITH S URGICAL TEAM PER PROTOCOL Knee Tib Insrt Attune Sz9 6mm N 1517-21-082 Ea - Sna Total Jt Kn ee Left: KNEE [employer] 09/16/2017 1516-40-906 / Implanted: Qty: 1 on 05/18/2015 by Randy Mccurdy MD at [facility] NA / [id number] Description:ALL IMPLANTS VERIFIED WITH S URGICAL TEAM PER PROTOCOL Knee Fem Attune Depu Lft Sz9 N 1504-10-109 Ea - Sna Total Jt Kne e Left: KNEE [employer] 09/08/2024 1504-10-109 / Implanted: Qty: 1 on 05/18/2015 by Randy Mccurdy MD at [facility] NA / [id number] Description:ALL IMPLANTS VERIFIED WITH S URGICAL TEAM PER PROTOCOL documented as of this encounter Procedures Procedure Name Priority Date/Time Associated Diagnosis Comme nts GLUCOSE BY METER, Routine 10/20/2020 6:19 Result s for this POCT AM CDT procedure are i n the results section. HEMOGLOBIN Routine 10/20/2020 6:10 Results for this AM CDT procedure are i n the results section. BASIC METABOLIC Routine 10/20/2020 6:10 Results for this PANEL AM CDT procedure are i n the results section. GLUCOSE BY METER, Routine 10/19/2020 9:46 Result s for this POCT PM CDT procedure are i n the results section. GLUCOSE BY METER, Routine 10/19/2020 5:40 Result s for this POCT PM CDT procedure are i n the results section. GLUCOSE BY METER, Routine 10/19/2020 11:09 Result s for this POCT AM CDT procedure are i n the results section. GLUCOSE BY METER, Routine 10/19/2020 7:25 Result s for this POCT AM CDT procedure are i n the results section. HEMOGLOBIN Routine 10/19/2020 5:58 Results for this AM CDT procedure are i n the results section. BASIC METABOLIC Routine 10/19/2020 5:58 Results for this PANEL AM CDT procedure are i n the results section. GLUCOSE BY METER, Routine 10/18/2020 9:30 Result s for this POCT PM CDT procedure are i n the results section. GLUCOSE BY METER, Routine 10/18/2020 5:41 Result s for this POCT PM CDT procedure are i n the results section. GLUCOSE BY METER, Routine 10/18/2020 11:28 Result s for this POCT AM CDT procedure are i n the results section. XRAY PELVIS WITH HIP Routine 10/18/2020 10:29 Res ults for this 1 VIEW LT AM CDT procedure are i n the results section. GLUCOSE BY METER, Routine 10/18/2020 9:31 Result s for this POCT AM CDT procedure are i n the results section. ARTHROPLASTY HIP 10/18/2020 6:38 Primary osteoarthrit is AM CDT of left hip Case Notes BIOMET Special Needs *x* Biomet OP per Insuran ce HGB AM, BACK FUSION 03/2020 GLUCOSE BY METER, POCT Routine 10/18/2020 6:21 AM CDT Results for this procedure are in the resu lts section. HEMOGLOBIN STAT 10/18/2020 6:03 AM CDT Resu lts for this procedure are in the resu lts section. POTASSIUM STAT 10/18/2020 6:03 AM CDT Resu lts for this procedure are in the resu lts section. documented in this encounter Results GLUCOSE BY METER, POCT (10/20/2020 6:19 AM CDT) Pathologist Sig nature Glucose POC 195 (H) 70 - 99 mg/dL [facility] Specimen Blood - Blood specimen (specimen) Performing Organization Address City/State/ZIP Code Phon e Number [facility] [address] [place] [address] BASIC METABOLIC PANEL (10/20/2020 6:10 AM CDT) Pathologist Sig nature Glucose 222 (H) 70 - 100 mg/dL [facility] BUN 21 6 - 22 mg/dL [facility] Creatinine 1.06 0.80 - 1.30 mg/[facility] BUN/Creatinine Ratio 19.8 10.0 - 25.0 [facility] Sodium 136 135 - 145 meq/L [facility] Potassium 4.0 3.5 - 5.3 meq/L [facility] Chloride 101 99 - 110 meq/L [facility] CO2 28 20 - 29 meq/L [facility] Anion Gap with K 11 6 - 20 meq/L [facility] Calcium 8.9 8.5 - 10.5 mg/dL [place] Age 80 Years [facility] eGFR Non- 67 >=60 [place]ese mL/min/1.73m2 [facility] eGFR 81 >=60 mL/min/1.73m2 [place] Specimen Blood - Blood specimen (specimen) Performing Organization Address City/[facility]/ZIP Code Phon e Number [facility] [address] [place] [address] HEMOGLOBIN (10/20/2020 6:10 AM CDT) Pathologist Sig nature Hemoglobin 11.2 (L) 13.5 - 17.5 g/dL [facility] Specimen Blood - Blood specimen (specimen) Performing Organization Address [facility]/ZIP Code Phon e Number [facility] [address] [place], [place] [address] GLUCOSE BY METER, POCT (10/19/2020 9:46 PM CDT) Pathologist Sig nature Glucose POC 271 (H) 70 - 99 mg/dL [facility] Specimen Blood - Blood specimen (specimen) Performing Organization Address City/[facility]/ZIP Code Phon e Number [facility] [address] [place], [place] [address] GLUCOSE BY METER, POCT (10/19/2020 5:40 PM CDT) Pathologist Sig nature Glucose POC 181 (H) 70 - 99 mg/dL [facility] Specimen Blood - Blood specimen (specimen) Performing Organization Address City/[facility]/ZIP Code Phon e Number [facility] [address] [place] [address] GLUCOSE BY METER, POCT (10/19/2020 11:09 AM CDT) Pathologist Sig nature Glucose POC 286 (H) 70 - 99 mg/dL [facility] Specimen Blood - Blood specimen (specimen) Performing Organization Address City/[facility]/ZIP Code Phon e Number [facility] [address] [place], [place] [address] GLUCOSE BY METER, POCT (10/19/2020 7:25 AM CDT) Pathologist Sig nature Glucose POC 213 (H) 70 - 99 mg/dL [facility] Specimen Blood - Blood specimen (specimen) Performing Organization Address City/State/ZIP Code Phon e Number [facility] [address] [place], [place] [address] BASIC METABOLIC PANEL (10/19/2020 5:58 AM CDT) Pathologist Sig [facility] Glucose 205 (H) 70 - 100 mg/dL [facility] BUN 14 6 - 22 mg/dL [facility] Creatinine 0.95 0.80 - 1.30 mg/[facility] BUN/Creatinine Ratio 14.7 10.0 - 25.0 [facility] Sodium 135 135 - 145 meq/L [facility] Potassium 4.1 3.5 - 5.3 meq/L [facility] Chloride 101 99 - 110 meq/L [facility] CO2 27 20 - 29 meq/L [facility] Anion Gap with K 11 6 - 20 meq/L [facility] Calcium 8.2 (L) 8.5 - 10.5 mg/dL [place] Age 80 Years [facility] eGFR Non- 76 >=60 Maltese mL/min/1.73m2 [place] eGFR >90 >=60 mL/min/1.73m2 [place] Specimen Blood - Blood specimen (specimen) Performing Organization Address City/[facility]/ZIP Code Phon e Number [facility] [address] [place], [place] [address] [phone] HEMOGLOBIN (10/19/2020 5:58 AM CDT) Pathologist [facility] Hemoglobin 10.9 (L) 13.5 - 17.5 g/dL [facility] Specimen Blood - Blood specimen (specimen) Performing Organization Address City/State/ZIP Code Phon e Number [facility] [address] [place], [place] [address] GLUCOSE BY METER, POCT (10/18/2020 9:30 PM CDT) Pathologist Sig nature Glucose POC 256 (H) 70 - 99 mg/dL [facility] Specimen Blood - Blood specimen (specimen) Performing Organization Address City/State/ZIP Code Phon e Number [facility] [address] [place], [place] [address] GLUCOSE BY METER, POCT (10/18/2020 5:41 PM CDT) Pathologist Sig nature Glucose POC 194 (H) 70 - 99 mg/dL [facility] Specimen Blood - Blood specimen (specimen) Performing Organization Address City/State/ZIP Code Phon e Number [facility] [address] [place] [address] GLUCOSE BY METER, POCT (10/18/2020 11:28 AM CDT) Pathologist Sig nature Glucose POC 252 (H) 70 - 99 mg/dL [facility] Specimen Blood - Blood specimen (specimen) Performing Organization Address City/State/ZIP Code Phon e Number [facility] [address] [place] [address] XRAY PELVIS WITH HIP 1 VIEW LT (10/18/2020 10:29 AM CDT) Specimen Narrative Performed At [facility] Patient Name: BAKARI ARROYO Date of : 1940 Procedure: XRAY PELVIS WITH HIP 1 VIEW LT Date of Service: 10/18/2020 EXAM: XRAY PELVIS WITH HIP 1 VIEW LT INDICATION: postop left total hip COMPARISON(S): 09/17/2020 FINDINGS/IMPRESSION: Postoperative change left hip art hroplasty. No perihardware fracture. Alignment is near-anatomic. Mod erate to severe degenerative change of the right hip is a stable finding. Finalized by: Adams Solares DO on 021 10:45 AM CDT Patient/Procedure Information: [facility] [place] MRN/VASILIY: [id number] Order Number: [id number] Accession Number: [id number] Ordering Provider: RAMIREZ SANDERS Authorizing Provider: RAMIREZ SANDERS Procedure Note Interface, Radiantres - 10/18/2020 10:47 AM CDT Patient Name: BAKARI ARROYO Date of : 1940 Procedure: XRAY PELVIS WITH HIP 1 VIEW LT Date of Service: 10/18/2020 EXAM: XRAY PELVIS WITH HIP 1 VIEW LT INDICATION: postop left total hip COMPARISON(S): 09/17/2020 FINDINGS/IMPRESSION: Postoperative alberto e left hip arthroplasty. No perihardware fracture. Alignment is near-anatomic. Moderate to severe degenerative change of the right hip is a stable finding. Finalized by: Adams Solares DO on 021 10:45 AM CDT Patient/Procedure Information: [facility] MRN/VASILIY: [id number] Order Number: [id number] Accession Number: [id number] Ordering Provider: RAMIREZ SANDERS Authorizing Provider: RAMIREZ SANDERS Performing Organization Address [facility] Phon e Number [id number] GLUCOSE BY METER, POCT (10/18/2020 9:31 AM CDT) Pathologist Sig nature Glucose POC 228 (H) 70 - 99 mg/dL [facility] Specimen Blood - Blood specimen (specimen) Performing Organization Address [facility] Phon e Number [facility] [address] [place] [address] GLUCOSE BY METER, POCT (10/18/2020 6:21 AM CDT) Pathologist Sig nature Glucose POC 175 (H) 70 - 99 mg/dL [facility] Specimen Blood - Blood specimen (specimen) Performing Organization Address [facility] Phon e Number [facility] [address] [place], [place] [phone] HEMOGLOBIN (10/18/2020 6:03 AM CDT) Pathologist Sig nature Hemoglobin 13.8 13.5 - 17.5 g/dL [facility] Specimen Blood - Blood specimen (specimen) Performing Organization Address [facility] Phon e Number [facility] [address] [place] [address] POTASSIUM (10/18/2020 6:03 AM CDT) Pathologist Sig nature Potassium 3.7 3.5 - 5.3 meq/L [facility] Specimen Blood - Blood specimen (specimen) Performing Organization Address 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 Pediatric Patients 0 - 3 months: Maximum of 60 mg/kg/24 hours of acetaminophen. Pediatric Patients older than 3 months: Maximum of 75 mg/kg/24 hours of acetaminophen (Never exceeding 4 grams/day). Given 10/20/2020 12:11 AM CDT 650 mg Given 10/19/2020 5:56 PM CDT 650 mg amLODIPine (NORVASC) tablet 5 mg Given 10/19/2020 9:37 PM CDT 5 mg 5 mg, Oral, Every evening, First dose on Sun10/18/20 at 2100, Until Discontinued, Hold for SBP less than 120 Given 10/19/2020 12:16 AM CDT 5 mg apixaban (ELIQUIS) tablet 2.5 mg Given 10/20/2020 9:31 AM CDT 2.5 mg 2.5 mg, Oral, Two times a day, 70 doses, First dose on Sun10/19/20 at 0800, Last dose on Sun11/22/20 at 2000, Post - Op Given 10/19/2020 9:32 PM CDT 2.5 mg Given 10/19/2020 9:07 AM CDT 2.5 mg atorvaSTATin (LIPITOR) tablet 20 mg Given 10/19/2020 9:33 PM CDT 20 mg 20 mg, Oral, Bedtime, First dose on Sun10/18/20 at 2100, Until Discontinued Given 10/19/2020 12:15 AM CDT 20 mg carbohydrate 15 g 15 g, Oral, PRN per parameter, Starting on Sun10/18/20 at 1003, Until Discontinued, low blood glucose, Give 15 grams of carb ohydrate if blood glucose is less than 70 mg/dL, patient is responsive and able to take food or oral meds. Recheck blood glucose in 15 minutes. Repeat 1 time and call MD. If recheck is greater than 70 mg/dL and able to take food or oral meds, give 15 gram carbohydrate if meal or snack due in more than an hour. Serve meal or snack if due in less than 1 hour. See hypoglycemia treatment on cardex. S ources of 15 grams carbohydrate: a. 4 oz of fruit juice (Do NOT give orange juice to dialysis p atients due to risk of hyperkalemia) or b. 4 oz of soda pop (NOT diet) or c . 1 tablespoon of honey dextrose 50% IV solution 50 mL 50 mL (25 g), IV, PRN per parameter, Starting on Mon at 1003, Until Discontinued, low blood glucose, 50 mL, Give if blood glucose is less than 70 mg/dL, patient is unresponsive or NPO, a nd has IV access. Recheck blood glucose in 15 minutes and call MD. Repeat dose if r echeck less than 70 mg/dL and call MD. If recheck is greater than 70 mg/dL and abl e to take food or oral meds, give 15 gram carbohydrate if meal or snack due in mor e than an hour. Serve meal or snack if due in less than 1 hour. See hypoglycemia treatment on car dex. glucagon for injection 1 mg vial 1 mg 1 mg, Intramuscular, PRN per parameter, Starting on Mo n 10/18/20 at 1003, Until Discontinued, low blood glucose, Give if blood glucose less than 70 mg/dL, patient is unresponsive or NPO, and has no IV ac cess. Establish IV access. Recheck blood glucose in 15 minutes and call MD. If r echeck is greater than 70 mg/dL and able to take food or oral meds, give 15 gram car bohydrate if meal or snack due in more than an hour. Serve meals or snack if due in less than 1 ho ur. See hypoglycemia treatment on cardex. Reconstitute vial with 1 mL of sterile water for injection for reconstitution for a final concentra tion of 1 mg/mL. Shake vial gently. Use immediately and discard unused portion. Reconstitute with 1 mL of sterile water for injection to yield 1 mg/mL. Shake vial gently. Use immediately and discard unused portion. glucose chewable tablet 16 g 16 g (4 tablet), Oral, PRN per parameter, Starting on Sun10/18/20 at 1003, Until Discontinued, low blood glucose, Chew before swallowin g. Give 15 gram of carbohydrate if blood glucose is less th an 70 mg/dL, patient is responsive and able to take food or oral meds. Recheck blood glucose in 15 minutes. Repeat 15 gram carbohydrate if recheck is less than 70 mg/dL and call MD. If recheck is greater than 70 mg/dL and able to take food or o ral meds, give 15 gram carbohydrate if meal or snack due in more than an hour. Serve meal or snack if due in less than 1 hour. See hypoglycemia treatment on cardex. S ources of 15 grams carbohydrate: a. 4 oz of fruit juice (Do NOT give orange juice to dialysis p atients due to risk of hyperkalemia) or b. 4 oz of soda pop (NOT diet) or c . 1 tablespoon of honey hydroCHLOROthiazide tablet 25 mg Given 10/20/2020 9:31 AM CDT 25 mg 25 mg, Oral, DAILY, First dose on Sun10/19/20 at 1025, Until Discontinued, Hold for SBP less than 120 Given 10/19/2020 11:50 AM CDT 25 mg insulin aspart (NovoLOG) SQ Given 10/20/2020 7:03 AM CDT 2 Unit s Arm Left Upper TD correction scale (Adult) 2-8 Units, Subcutaneous, Three times a day, First dose on Sun10/18/20 at 1130, Until Discontinued, 0.08 mL, Give this dose whether patient is eating or patient is NPO LOW DOSE insulin aspart (NovoLOG) subcutaneous correction scale Premeal Blood Glucose = Insulin Dose 150-199 2 units 200-249 3 units 250-299 5 units 300-349 7 units Over 349 8 units Given 10/19/2020 5:57 PM CDT 2 Units Given 10/19/2020 11:50 AM CDT 5 Units lisinopril (PRINIVIL, ZESTRIL) tablet 40 mg Given 10/20/2020 9:31 AM CDT 40 mg 40 mg, Oral, DAILY, First dose on Sun10/19/20 at 1025, Until Discontinued, Hold for SBP less than 120 Given 10/19/2020 11:50 AM CDT 40 mg metoprolol tartrate (LOPRESSOR) tablet 5 0 mg Given 10/20/2020 9:31 AM CDT 50 mg 50 mg, Oral, Two times a day, First dose on Sun10/18/20 at 2100, Until Discontinued, Hold for SBP less than 100 Hold for HR less than 60 Given 10/19/2020 9:36 PM CDT 50 mg Given 10/19/2020 9:07 AM CDT 50 mg polyethylene glycol (MIRALAX) packet 1 Given 10/20/2020 9:31 AM CDT 1 packet packet 1 packet, Oral, Daily, First dose on Sun10/19/20 at 0900, Until Discontinued, Post - Op, Hold if 2 loose stools occur in the last 24 hours. senna-docusate sodium Given 10/20/2020 9:31 AM CDT 1 tablet (SENOKOT-S;PERICOLACE) tablet 1 tablet 1 tablet, Oral, Two times a day, First dose (after last reorder) on Sun10/19/20 at 2130, Until Discontinued, Post - Op, Hold if 2 loose stools occur in the last 24 hours. Given 10/19/2020 9:32 PM CDT 1 tablet sodium chloride 0.9% flush (adult) 10 mL Given 10/20/2020 9:32 AM CDT 10 mL 10 mL, IV, Two times a day and prn, First dose on Sun10/18/20 at 2100, Until Discontinued, 10 mL, Post - Op, Flush unused lumens as scheduled and as often as necessary before and after meds. Use a push/pause technique when flushing to create turbulence. Given 10/19/2020 9:34 PM CDT 10 mL Given 10/19/2020 9:09 AM CDT 10 mL Medication Order MAR Action Action Date Dose Rate Site acetaminophen (TYLENOL) tablet Given 10/18/2020 6:33 AM CDT 1,0 00 mg 1,000 mg 1,000 mg, Oral, Pre-op, 1 dose, On Sun10/18/20 at 0555, Pre - Op, Adult patients: Total dose of acetaminophen from all acetaminophen containing products should not exceed 4 grams (4000 mg) per day. Pediatric Patients 0 - 3 months: Maximum of 60 mg/kg/24 hours of acetaminophen. Pediatric Patients older than 3 months: Maximum of 75 mg/kg/24 hours of acetaminophen (Never exceeding 4 grams/day). ceFAZolin (ANCEF) 2000 mg/20 mL sterile Given 10/19/2020 12:16 A M CDT 2,000 mg water IV syringe 2,000 mg, IV, Every eight hours, 2 doses, First dose (after last reorder) on Sun10/18/20 at 1500, Last dose on Sun10/18/20 at 2300, 20 mL, PACU - Continue Post-Op, Administer as IV push over 4 minutes. Given 10/18/2020 2:45 PM CDT 2,000 mg gabapentin (NEURONTIN) capsule 600 mg Given 10/18/2020 6:33 AM CDT 600 mg 600 mg, Oral, Pre-op, 1 dose, On Sun10/18/20 at 0555, Pre - Op, 1 dose prior to surgery ketorolac (TORADOL) intravenous injection 15 Given 12/2020 9:33 PM CDT 15 mg mg 15 mg, IV, Every six hours, 3 doses, First dose on Sun10/19/20 at 0900, Last dose on Sun10/19/20 at 2100, 1 mL, If preference is to further dilute for IV administration: First draw up patient-specific dose, then dilute to 10 mL with 0.9% sodium chloride. Given 10/19/2020 3:26 PM CDT 15 mg Given 10/19/2020 9:08 AM CDT 15 mg lactated ringers IV solution New Bag 10/18/2020 7:56 AM CDT 25 mL/hr IV, at 25 mL/hr, Continuous, Starting on Sun10/18/20 at 0650, Until Sun10/18/20 at 0914, 1,000 mL, Pre - Op Now New Bag/Tubing 10/18/2020 6:25 AM CDT 25 mL/hr lactated ringers IV solution Already Infusing 10/18/2020 9:40 AM CDT 125 mL/hr IV, at 125 mL/hr, Continuous, Starting on Sun10/18/20 at 0925, Until Sun10/18/20 at 1025, 1,000 mL, PACU, TKO current fluids if patient is going to Day Unit / ARU and tolerating PO fluids without nausea. lidocaine 2% gel (Urojet)~ Given 10/18/2020 2:07 PM CDT 10 mL 10 mL, Urethral, One time, 1 dose, On Sun10/18/20 at 1330, 10 mL, To urethra for comfort upon insertion of urinary catheter. senna-docusate sodium Given 10/19/2020 9:07 AM CDT 1 tablet (SENOKOT-S;PERICOLACE) tablet 1 tablet 1 tablet, Oral, Two times a day, First dose on Sun10/18/20 at 2100, Until Discontinued, Post - Op, Hold if 2 loose stools occur in the last 24 hours. Given 10/18/2020 10:10 PM CDT 1 tablet sodium chloride 0.9% IV solution New Bag/Tubing 10/18/2020 12:08 PM CDT 75 mL/hr IV, at 75 mL/hr, Continuous, Starting on Sun10/18/20 at 1040, Until Sun10/19/20 at 0312, 1,000 mL, Post - Op traMADol (ULTRAM) tablet 100 mg Given 10/18/2020 6:33 AM CDT 100 mg 100 mg, Oral, Pre-op, 1 dose, On Sun10/18/20 at 0555, Pre - Op, Recommended maximum daily dose of tramadol = 400 mg. Recommended maximum daily dose in patients 75 years or older = 300 mg. traMADol (ULTRAM) tablet 50 mg Given 10/18/2020 10:10 PM CDT 50 mg 50 mg, Oral, Every six hours, First dose (after last reorder) on Sun10/18/20 at 1500, Until Discontinued, Post - Op, Alternate with acetaminophen (TYLENOL). Recommended maximum daily dose of traMADol = 400 mg. Recommended maximum daily dose in patients greater than 75 years of age = 300 mg documented in this encounter Active and Recently Administered Medications Times are shown in CDT. Medication Order 10/18/2020 10/19/2020 10/20/2020 acetaminophen (TYLENOL) tablet 1,000 mg (COMPLETED) 33 (Given - Provider: Gertrude Mcdonald RN) 1,000 mg, Oral, Pre-op, 1 dose, On Sun at 0555, Pre - Op, Adult patients: Total dose of acetaminophen from all acetaminophen containing products should not exceed 4 grams (4000 mg) per day. Pedia tric Patients 0 - 3 months: Maximum of 60 mg/kg/24 hours of acetaminophen. Pediatric Patients older than 3 months: Maximum of 75 mg/kg/24 hours of acetaminophen (Never exceeding 4 grams/day). acetaminophen (TYLENOL) tablet 650 mg 1233 (Given - Pr ovider: Marisela Barnard RN - Comment: pt very drowsy at this time for narcotics)1735 (Given - Provider: Yu Eugene RN) 0016 (Given - Provider: Stephanie Linda RN) 0805 (Given - Provider: Stephanie Lnida RN)1150 (Given - Provider: Sanjuanita Han RN)1756 (Given - Provider: Sanjuanita Han RN) 0011 (Given - Provider: Jasmine Santiago RN)0615 (Given - Provider: Jasmine Santiago RN)1200 (Due)1800 (Due) 650 mg, Oral, Every six hours, First dos e on Sun10/18/20 at 1200, Until Discontinued, Post - Op, Alternate with tramadol (ULTRAM); Adult patients: Total dose of acetaminophen from all acetaminophen con taining products should not exceed 4 gra ms (4000 mg) per day. Pediatric Patients 0 - 3 months: Maximum of 60 mg/kg/24 hours of acetaminophen. Pediatric Patients older than 3 months: Maximum of 75 mg/ kg/24 hours of acetaminophen (Never exceeding 4 grams/day). amLODIPine (NORVASC) tablet 5 mg 15 (G ivtiffany - Provider: Stephanie Linda RN - Comment: just recieved meds from pharmacy)2136 (Given - Provider: Jasmine Santiago RN) 2099 (Due) 5 mg, Oral, Every evening, First dose on Sun10/18/20 at 2100, Until Discontinued, Hold for SBP less than 120 apixaban (ELIQUIS) tablet 2.5 mg 906 (G iven - Provider: Sanjuanita Han RN)2131 (Given - Provider: Jasmine Santiago RN) 09 (Given - Provider: Grace Maradiaga RN - Comment: therapy)1999 (Due) 2.5 mg, Oral, Two times a day, 70 doses, First dose on Sun10/19/20 at 0800, Last dose on Sun11/22/20 at 2000, Post - Op atorvaSTATin (LIPITOR) tablet 20 mg 001 (Given - Provider: Stephanie Linda RN - Comment: [facility]2132 (Given - Provider: Jasmine Santiago RN) 2100 (Due) 20 mg, Oral, Bedtime, First dose on Sun10/18/20 at 2100, Until Di scontinued ceFAZolin (ANCEF) 2000 mg/20 mL sterile water IV syrin ge (COMPLETED) 1445 (Given - Provider: Marisela Barnard RN) 0016 (Given - Provider: Stephanie Linda RN) 2,000 mg, IV, Every eight hours, 2 doses , First dose (after last reorder) on Sun10/18/20 at 1500, Last dose on Sun10/18/20 at 2300, 20 mL, PACU - Continue Post- Op, Administer as IV push over 4 minutes. ceFAZolin (ANCEF) syringe 3000 mg/30 mL sterile water (COMPLETED) 717 (Given - Provider: Shiela Hawthorne APRN-[facility]) 3,000 mg, IV, Give in OR, 1 dose, On Sun10/18/20 at 0630, 30 mL, Pre - Op, Give in PROCEDURAL area. Start within 1 hour of cut time and complete prior to cut time. Administer over 5 minutes. gabapentin (NEURONTIN) capsule 600 mg (COMPLETED) 632 (Given - Provider: Gertrude Mcdonald RN) 600 mg, Oral, Pre-op, 1 dose, On 10/18 at 0555, Pre - Op, 1 dose prior to surgery hydroCHLOROthiazide tablet 25 mg 1150 (Given - P rovider: Sanjuanita Han RN) 0931 (Given - Provider: Grace Maradiaga, NAIF) 25 mg, Oral, DAILY, First dose on 12/30 at 1025, Until Discontinued, Hold for SBP less than 120 insulin aspart (NovoLOG) SQ correction scale (Adult) 1 232 (Given - Provider: Marisela Barnard RN - Comment: BS)1750 (Given - Provider: Yu Eugene RN - Comment: BS-[id number]) 0805 (Given - Provider: Stephanie Linda RN - Comment: BS: [phone] (Given - Provider: Sanjuanita Han RN)1757 (Given - Provider: Sanjuanita Han RN) 0703 (Given - Provider: Mikaela Salas - Comment: Blood glucose is [phone] (Due)1730 (Due) 2-8 Units, Subcutaneous, Three times a d ay, First dose on Sun10/18/20 at 1130, Until Discontinued, 0.08 mL, Give this dose whether patient is eating or patient is NPO LOW DOSE insulin aspart (NovoLO G) subcutaneous correction scale Premea l Blood Glucose = Insulin Dose 150-199 2 units 200-249 3 units 250-299 5 units 300-349 7 units Over 349 8 units ketorolac (TORADOL) intravenous injection 15 mg (COMPLETED) 0908 (Given - Provider: Sanjuanita Han RN)1526 (Given - Provider: Sanjuanita Han RN)2132 (Given - Provider: Jasmine Santiago RN) 15 mg, IV, Every six hours, 3 doses, Fir st dose on Sun10/19/20 at 0900, Last dose on Sun10/19/20 at 2100, 1 mL, If preference is to further dilute for IV administration: First draw up patient-specific d ose, then dilute to 10 mL with 0.9% sodium chloride. lidocaine 2% gel (Urojet)~ (COMPLETED) 1407 (Given - P rovider: Marisela Barnard RN) 10 mL, Urethral, One time, 1 dose, On 10/18/20 at 1330, 10 mL, To urethra for comfort upon insertion of urinary catheter. lisinopril (PRINIVIL, ZESTRIL) tablet 40 mg 1150 (Given - Provider: Sanjuanita Han RN) 0931 (Given - Provider: Grace Maradiaga RN) 40 mg, Oral, DAILY, First dose on 12/30 at 1025, Until Discontinued, Hold for SBP less than 120 metoprolol tartrate (LOPRESSOR) tablet 50 mg 0015 (Given - Provider: Stephanie Linda RN - Comment: Recieved med form pharmacy)0907 (Given - Provider: Sanjuanita Han RN)2135 (Given - Provider: Jasmine Santiago RN) 0931 (Given - Provider: Grace Maradiaga RN)2099 (Due) 50 mg, Oral, Two times a day, First dose on Sun10/18/20 at 2100, Until Discontinued, Hold for SBP less than 100 Hold for HR less than 60 polyethylene glycol (MIRALAX) packet 1 packet 42 (Refused - Provider: Sanjuanita Han RN) 0931 (Given - Provider: Grace Maradiaga RN) 1 packet, Oral, Daily, First dose on Sun10/19/20 at 0900, Until Discontinued, Post - Op, Hold if 2 loose stools occur in the last 24 hours. senna-docusate sodium (SENOKOT-S;PERICOLACE) tablet 1 tablet (CANCELED) 2209 (Given - Provider: Stephanie Linda RN) 906 (Given - Provider: Sanjuanita Han RN) 2099 (Due) 1 tablet, Oral, Two times a day, First d ose on Sun10/18/20 at 2100, Until Discontinued, Post - Op, Hold if 2 loose stools occur in the last 24 hours. senna-docusate sodium (SENOKOT-S;PERICOLACE) tablet 1 tablet 2131 (Given - Provider: Jasmine Santiago RN) 930 (Given - Provider: Grace Maradiaga RN)2099 (Due) 1 tablet, Oral, Two times a day, First d ose (after last reorder) on Sun10/19/20 at 2130, Until Discontinued, Post - Op, Hold if 2 loose stools occur in the last 24 hours. sodium chloride 0.9% flush (adult) 10 mL 7 (Given - Provider: Stephanie Linda RN)908 (Given - Provider: Sanjuanita Han RN)2133 (Given - Provider: Jasmine Santiago RN) 931 (Given - Provider: Grace Maradiaga RN)2099 (Due) 10 mL, IV, Two times a day and prn, Firs t dose on Sun10/18/20 at 2100, Until Discontinued, 10 mL, Post - Op, Flush unused lumens as scheduled and as often as necessary before and after meds. Use a push/p ause technique when flushing to create turbulence. traMADol (ULTRAM) tablet 100 mg (COMPLETED) 0633 (Give n - Provider: Gertrude Mcdonald RN) 100 mg, Oral, Pre-op, 1 dose, On 10/18 at 0555, Pre - Op, Recommended maximum daily dose of tramadol = 400 mg. Recommended maximum daily dose in patients 75 years or older = 300 mg. traMADol (ULTRAM) tablet 50 mg (CANCELED) 1610 (Not Gi chuyita - Provider: Marisela Barnard RN - Reason: Other (See Comment) - Comment: Pt is very drowsy at this time.Will reasses.)2210 (Given - Provider: Stephanie Linda, NAIF) 0321 (Refused - Provider: Stephanie Linda RN) 50 mg, Oral, Every six hours, First dose (after last reorder) on Sun10/18/20 at 1500, Until Discontinued, Post - Op, Alternate with acetaminophen (TYLENOL). Recommended maximum daily dose of traMADol = 400 mg. Recommended maximum daily dose in patients greater than 75 years of age = 300 mg tranexamic acid (CYKLOKAPRON) 1,000 mg i n sodium chloride 0.9% 100 mL (COMPLETED) 0727 (New Bag - Provider: VICKI Singh) 1,000 mg (1 g), IV, Send now to OR, 1 do se, On Sun10/18/20 at 0825, 110 mL, Do not administer with blood products or penicillin Medication Order 10/18/2020 10/19/2020 10/20/2020 lactated ringers IV solution (CANCELED) 0625 (New Bag/ Tubing - Provider: Gertrude Mcdonald RN)0756 (New Bag - Provider: VICKI Singh)0912 (Anesthesia Volume Adjustment - Provider: VICKI Singh) IV, at 25 mL/hr, Continuous, Starting on Sun10/18/20 at 0650, Until Sun10/18/20 at 0914, 1,000 mL, Pre - Op Now lactated ringers IV solution (CANCELED) 0940 (Already Infusing - Provider: Alicja Ibanez RN)1037 (Stopped - Provider: Marisela Barnard RN) IV, at 125 mL/hr, Continuous, Starting o n Sun10/18/20 at 0925, Until Sun10/18/20 at 1025, 1,000 mL, PACU, TKO current fluids if patient is going to Day Unit / ARU and tolerating PO fluids without nausea. sodium chloride 0.9% IV solution (CANCELED) 1208 (New Bag/Tubing - Provider: Marisela Barnard, NAIF) 0310 (Stopped - Provider: Stephanie Linda RN) IV, at 75 mL/hr, Continuous, Starting on Sun10/18/20 at 1040, Until Sun10/19/20 at 0312, 1,000 mL, Post - Op Medication Order 10/18/2020 10/19/2020 10/20/2020 benzocaine-menthol (CEPACOL w/ BENZOCAINE) lozenge 1 lozenge 1 lozenge, Mouth/Throat, Every four hour s prn, Starting on Sun10/18/20 at 1036, Until Discontinued, sore throat, other (Specify), throat irritation, Post - Op, Exception: Patients with dysphagia, radiati on mucositis/esophagitis or without a gag reflex. bisacodyl (DULCOLAX) enteric coated tablet 5 mg 5 mg, Oral, Two times a day prn, Startin g on Sun10/18/20 at 1036, Until Discontinued, constipation, Post - Op, SECOND choice or per patient preference bisacodyl (DULCOLAX) suppository 10 mg 10 mg, Rectal, One time a day prn, Start ing on Sun10/18/20 at 1036, Until Discontinued, constipation, Post - Op, THIRD choice or per patient preference. If patient cannot take oral medications, use first for constipation. carbohydrate 15 g(Linked Group 1) 15 g, Oral, PRN per parameter, Starting on Sun10/18/20 at 1003, Until Discontinued, low blood glucose, Give 15 grams of carbohydrate if blood glucose is less than 70 mg/dL, patient is responsive and able to take food or oral meds. Recheck bl ood glucose in 15 minutes. Repeat 1 time and call MD. If recheck is greater than 70 mg/dL and able to take food or oral meds, give 15 gram carbohydrate if meal o r snack due in more than an hour. Serve meal or snack if due in less than 1 hour. See hypoglycemia treatment on cardex. Sources of 15 grams carbohydrate: a. 4 oz of fruit juice (Do NOT give orange ju ice to dialysis patients due to risk of hyperkalemia) or b. 4 oz of soda pop (NOT diet) or c. 1 tablespoon of honey dextrose 50% IV solution 50 mL 50 mL (25 g), IV, PRN per parameter, Sta rting on Sun10/18/20 at 1003, Until Discontinued, low blood glucose, 50 mL, Give if blood glucose is less than 70 mg/dL, patient is unresponsive or NPO, and has IV access. Recheck blood glucose in 15 min utes and call MD. Repeat dose if recheck less than 70 mg/dL and call MD. If recheck is greater than 70 mg/dL and able to take food or oral meds, give 15 gram carb ohydrate if meal or snack due in more th an an hour. Serve meal or snack if due in less than 1 hour. See hypoglycemia treatment on cardex. diphenhydrAMINE (BENADRYL) injection solution 25 mg 25 mg, IV, Every four hours prn, Startin g on Sun10/18/20 at 1036, Until Discontinued, itching, 0.5 mL, Post - Op, May repeat 4 times If preference is to further dilute for IV administration: First draw u p patient-specific dose, then dilute to 10 mL with 0.9% sodium c hloride. fentaNYL 100 mcg/2 mL preservative free injection solution 50 mc g 50 mcg, IV, Every thirty minutes prn, St arting on Sun10/18/20 at 1036, Until Discontinued, severe pain, 1 mL, Post - Op, If pain unrelieved by oxycodone glucagon for injection 1 mg vial 1 mg 1 mg, Intramuscular, PRN per parameter, Starting on Sun10/18/20 at 1003, Until Discontinued, low blood glucose, Give if blood glucose less than 70 mg/dL, patient is unresponsive or NPO, and has no IV acc ess. Establish IV access. Recheck blood glucose in 15 minutes and call MD. If recheck is greater than 70 mg/dL and able to take food or oral meds, give 15 gram carbohydrate if meal or snack due in mor e than an hour. Serve meals or snack if due in less than 1 hour. See hypoglycemia treatment on cardex. Reconstitute vial with 1 mL of sterile water for injection for reconstitution for a final concentr ation of 1 mg/mL. Shake vial gently. Us e immediately and discard unused portion. Reconstitute with 1 mL of sterile water for injection to yield 1 mg/mL. Shake vial gently. Use immediately and discard unused portion. glucose chewable tablet 16 g(Linked Group 1) 16 g (4 tablet), Oral, PRN per parameter , Starting on Sun10/18/20 at 1003, Until Discontinued, low blood glucose, Chew before swallowing. Give 15 gram of carbohydrate if blood glucose is less than 70 mg/ dL, patient is responsive and able to ta ke food or oral meds. Recheck blood glucose in 15 minutes. Repeat 15 gram carbohydrate if recheck is less than 70 mg/dL and call MD. If recheck is greater than 7 0 mg/dL and able to take food or oral me ds, give 15 gram carbohydrate if meal or snack due in more than an hour. Serve meal or snack if due in less than 1 hour. See hypoglycemia treatment on cardex. S ources of 15 grams carbohydrate: a. 4 o z of fruit juice (Do NOT give orange juice to dialysis patients due to risk of hyperkalemia) or b. 4 oz of soda pop (NOT diet) or c. 1 tablespoon of honey magnesium hydroxide (MILK OF MAGNESIA) oral suspension 30 mL 30 mL, Oral, Two times a day prn, Starti ng on Sun10/18/20 at 1036, Until Discontinued, constipation, 30 mL, Post - Op, FIRST choice or per patient preference. Exception: Nephrology/renal patients nalOXone (NARCAN) injection solution (vial) 0.2 mg 0.2 mg, Injection, Every two minutes prn , Starting on Sun10/18/20 at 1036, Until Discontinued, other (Specify), opioid induced respiratory depression - PARTIAL reversal, 0.5 mL, Post - Op, PARTIAL REVERS AL/RESPIRATORY DEPRESSION If respiratory rate less than 8/minute - call rapid response and administer (until respiratory rate increases to 10/minute). Give IV (preferred), IM or SUBQ nalOXone (NARCAN) injection solution (vial) 0.4 mg 0.4 mg, Injection, Every two minutes prn , Starting on Sun10/18/20 at 1036, Until Discontinued, other (Specify), opioid induced respiratory arrest - FULL reversal, 1 mL, Post - Op, FULL REVERSAL/RESPIRATO RY ARREST If patient is not breathing - call CODE BLUE and administer. Give IV (preferred), IM or SUBQ ondansetron (ZOFRAN) injection solution 4 mg 4 mg, IV, Every four hours prn, Starting on Sun10/18/20 at 0914, Until Discontinued, nausea, vomiting, 2 mL, PACU - Continue Post-Op, Use first for nausea. If ineffective after 15 minutes use promethazin e. If preference is to further dilute f or IV administration: First draw up patient-specific dose, then dilute to 10 mL with 0.9% sodium chloride. oxyCODONE (OXY-IR) tablet 5-10 mg 5-10 mg, Oral, Every four hours prn, Sta rting on Sun10/18/20 at 1036, Until Discontinued, moderate pain, severe pain, Post - Op, For patients with moderate pain, pain rating of 4-6, give oxyCODONE 5 mg P O every 4 hours PRN. For patients with severe pain, pain rating of 7 or greater, give oxyCODONE 10 mg PO every 4 hours PRN. May administer less potent prescribed medication based on patient request pe r the organization's medication management policy. ropivacaine (NAROPIN) 35 mg, ketorolac ( TORADOL) 15 mg, EPINEPHrine (ADRENALIN) 0.25 mg, morphine sulfate (PF) (DURAMORPH) 5 mg in sodium chloride 0.9% 50 mL (multimodal syringe) (CANCELED) 0835 (Given - Provider: Domingo Alexis MD) INTRAOP, Starting on Sun10/18/20 at 0835, Until Sun10/18/20 at 0913, 50 mL, Intra - Op vancomycin for injection 1000 mg vial (CANCELED) 0852 (Given - Provider: Domingo Alexis MD) INTRAOP, Starting on Sun10/18/20 at 0835, Until Sun10/18/20 at 091 3, Intra - Op Order Group 1: glucose chewable tablet 16 gJump to med 16 g (4 tablet), Oral, PRN per parameter , Starting on Sun10/18/20 at 1003, Until Discontinued, low blood glucose
Chew before swallowing. Give 15 gram of carbohydrate if blood glucose is less than 70 mg/dL, patient is responsi ve and able to take food or oral meds. Recheck blood glucose in 15 minutes. Repeat 15 gram carbohydrate if recheck is less than 70 mg/dL and call MD. &am p;nbsp;If recheck is greater than 70 mg/ dL and able to take food or oral meds, give 15 gram carbohydrate if meal or snack due in more than an hour. Serve meal or snack if due in less than 1 hour.&nb sp; See hypoglycemia treatment on c ardex. Sources of 15 grams carbohydrate: a. 4 oz of fruit juice (Do NOT give orange juice to dialysis patients due to risk of hyp erkalemia) or b. 4 oz of soda pop (NOT diet) or c. 1 tablespoon of honey
Or carbohydrate 15 gJump to med 15 g, Oral, PRN per parameter, Starting on Sun10/18/20 at 1003, Until Discontinued, low blood glucose
Give 15 grams of carbohydrate if blood glucose is less than 70 mg/dL, patient is responsive and able to take food or oral meds. &nbs p; Recheck blood glucose in 15 minutes. Repeat 1 time and call MD. If recheck is greater than 70 mg/dL and able to take food or or al meds, give 15 gram carbohydrate if me al or snack due in more than an hour. Serve meal or snack if due in less than 1 hour. See hypoglycemia treatment on cardex. Sources of 15 grams carbohydrate: a. 4 oz of fruit juice (Do NOT give orange juice to dialysis patients due to risk of hyperkalemia) or b. 4 oz of soda pop (NOT diet) or c. 1 tablespoon of honey
documented in this encounter
[2020-10-20] MEDS ORDERED: Polyethylene Glycol 3350 Powder 17 GM Packet PO PRN (16:31)
--- NOTE | 2020-10-20 17:33 | PCM.HP.2 ---
H&P History of Present Illness - General Date of Service: 10/20/20 Admit Problem/Dx: Admission Diagnosis/Problem Admission Diagnosis/Problem Walking disability Source of Information: Patient History Limitations: Reports: No Limitations - History of Present Illness Initial Comments - Free Text/Narative: This Is a 80-year-old male patient that had a left hip arthroplasty. He was transferred down from [facility] for swing bed. He is doing well. He says he does have some pain. He does state he has some chills but no fevers. He had the chills when he is up in [place]. He denies runny nose, sore throat, cough, chest pain, dysuria, pyuria or hematuria, diarrhea. Left Hip Pain Score (Numeric/FACES): 5 - Related Data Allergies/Adverse Reactions: Allergies Allergy/AdvReac Type Severity Reaction Status Date / Time amoxicillin [Amoxicillin] AdvReac rash, itch Verified 12/18/13 09:54 Penicillins AdvReac itch, rash Verified 12/18/13 09:54 Home Medications: Home Meds Lisinopril 40 mg PO DAILY 12/18/13 [History] Metoprolol Tartrate 50 mg PO BID 12/18/13 [History] Multivitamin [Multivitamins] 1 each PO DAILY 12/18/13 [History] amLODIPine [Norvasc] 5 mg PO DAILY 12/18/13 [History] Aspirin [Ecotrin EC] 81 mg PO DAILY 04/21/15 [History] Hydrochlorothiazide 25 mg PO DAILY 04/21/15 [History] Acetaminophen [Tylenol] 650 mg PO Q4H PRN 10/20/20 [History] Apixaban [Eliquis] 2.5 mg PO BID 10/20/20 [History] Sennosides/Docusate Sodium [Senna-S 8.6-50 mg Tablet] 1 tab PO BID 10/20/20 [History] atorvaSTATin [Lipitor] 20 mg PO BEDTIME 10/20/20 [History] glipiZIDE [Glucotrol] 10 mg PO WITHBREAKFAST 10/20/20 [History] metFORMIN HCl [Metformin HCl] 1,000 mg PO BIDMEALS 10/20/20 [History] oxyCODONE 5 mg PO Q4H PRN 10/20/20 [History] polyethylene glycoL 3350 [MiraLAX] 17 g PO DAILY PRN 10/20/20 [History] Past Medical History HEENT History: Reports: Impaired Vision Cardiovascular History: Reports: Blood Clots/VTE/DVT, Hypertension, Other (See Below) Other Cardiovascular History: bruit right carotid artery, carotid artery stenosis right Gastrointestinal History: Reports: None Neurological History: Reports: None Endocrine/Metabolic History: Reports: Diabetes, Type II - Infectious Disease History Infectious Disease History: Reports: Chicken Pox - Past Surgical History Head Surgeries/Procedures: Reports: None HEENT Surgical History: Reports: None Cardiovascular Surgical History: Reports: Carotid Endarterectomy Endocrine Surgical History: Reports: None Musculoskeletal Surgical History: Reports: Arthroscopic Knee, Joint Replacement, Knee Replacement, Other (See Below) Other Musculoskeletal Surgeries/Procedures:: back surgury, DDD cervical, lumbar, DJDknee, left/right total knee arthroplasty, fusion thoracic spine Dermatological Surgical History: Reports: None Social & Family History - Family History Family Medical History: No Pertinent Family History - Tobacco Use Tobacco Use Status *Q: Never Tobacco User Second Hand Smoke Exposure: No - Caffeine Use Caffeine Use: Reports: Coffee Other Caffeine Use: daily - Recreational Drug Use Recreational Drug Use: No H&P Review of Systems - Review of Systems: Review Of Systems: See Below General: Reports: Chills HEENT: Reports: No Symptoms Pulmonary: Reports: No Symptoms Cardiovascular: Reports: No Symptoms Gastrointestinal: Reports: No Symptoms Genitourinary: Reports: No Symptoms Musculoskeletal: Reports: Joint Swelling Skin: Reports: No Symptoms Psychiatric: Reports: No Symptoms Neurological: Reports: No Symptoms Hematologic/Lymphatic: Reports: No Symptoms Immunologic: Reports: No Symptoms Exam - Exam Exam: See Below - Vital Signs Vital Signs: Last Vital Signs Temp 98.6 F 10/20/20 13:00 Pulse 78 10/20/20 13:00 Resp 20 10/20/20 13:00 BP 177/82 H 10/20/20 13:00 Pulse Ox 93 L 10/20/20 13:00 Weight: 273 lb 12.8 oz - Exam General: Alert, Oriented, Cooperative HEENT: PERRLA, Posterior Pharynx Clear, TMs Clear Neck: Supple, Trachea Midline Lungs: Clear to Auscultation, Normal Respiratory Effort Cardiovascular: Regular Rate, Regular Rhythm. No: Systolic Murmur GI/Abdominal Exam: Normal Bowel Sounds, Non-Tender, No Distention, No Mass Extremities: Normal Inspection, No Pedal Edema Skin: Warm, Dry, Intact Neurological: Normal Speech, Normal Tone Neuro Extensive - Mental Status: Alert, Oriented x3, Normal Mood/Affect, Normal Cognition, Memory Intact Neuro Extensive - Motor, Sensory, Reflexes: Normal Gait Psychiatric: Alert, Normal Affect, Normal Mood - Patient Data Lab Results Last 24 hrs: Laboratory Results - last 24 hr 10/20/20 Range/Units 13:10 POC Glucose 261 H (80-116) mg/dL Sepsis Event Note - Evaluation Sepsis Screening Result: No Definite Risk - Focused Exam Vital Signs: Vital Signs Temp Pulse Resp BP Pulse Ox 10/20/20 13:00 98.6 F 78 20 177/82 H 93 L - Problem List (1) Difficulty waking SNOMED Code(s): 170232609 ICD Code: G47.8 - OTHER SLEEP DISORDERS Status: Acute Current Visit: Yes (2) H/O arthroplasty SNOMED Code(s): 070878016, 647228331, 723837857 ICD Code: Z98.890 - OTHER SPECIFIED POSTPROCEDURAL STATES Status: Acute Current Visit: Yes Problem List Initiated/Reviewed/Updated: Yes Orders Last 24hrs: Active Orders 24 hr Category Date Time Status Patient Status [ADT] Routine ADT 10/20/20 13:25 Active Blood Glucose Check, Bedside [RC] BIDMEALS Care 10/20/20 13:25 Active Communication Order [RC] ASDIRECTED Care 10/20/20 16:23 Active Oxygen Therapy [RC] PRN Care 10/20/20 13:25 Active Up With Assistance [RC] ASDIRECTED Care 10/20/20 13:25 Active VTE/DVT Education [RC] Per Unit Routine Care 10/20/20 13:25 Active Vital Signs [RC] QSHIFT Care 10/20/20 13:25 Active OT Evaluation and Treatment [CONS] Routine Cons 10/20/20 13:25 Active PT Evaluation and Treatment [CONS] Routine Cons 10/20/20 13:25 Active Consistent Carbohydrate Diet [DIET] Diet 10/20/20 Dinner Active Acetaminophen [TylenoL] Med 10/20/20 16:31 Active 650 mg PO Q4H PRN Apixaban [Eliquis] Med 10/20/20 21:00 Active 2.5 mg PO BID Aspirin [Halfprin] Med 10/21/20 09:00 Pending 81 mg PO DAILY Docusate Sodium/Sennosides [Senna Plus] Med 10/20/20 21:00 Active 1 tab PO BID Metoprolol Tartrate [Lopressor] Med 10/20/20 21:00 Active 50 mg PO BID Multivitamins [Tab-A-Mk] Med 10/21/20 09:00 Active 1 tab PO DAILY amLODIPine [Norvasc] Med 10/21/20 09:00 Active 5 mg PO DAILY atorvaSTATin [Lipitor] Med 10/20/20 21:00 Active 20 mg PO BEDTIME glipiZIDE [Glucotrol] Med 10/21/20 08:00 Active 10 mg PO WITHBREAKFAST hydroCHLOROthiazide Med 10/21/20 09:00 Active 25 mg PO DAILY lisinopriL [Prinivil] Med 10/21/20 09:00 Active 40 mg PO DAILY metFORMIN [Glucophage] Med 10/20/20 18:00 Active 1,000 mg PO BIDMEALS oxyCODONE Med 10/20/20 16:31 Active 5 mg PO Q4H PRN polyethylene glycoL 3350 [MiraLAX] Med 10/20/20 16:31 Active 17 gm PO DAILY PRN Resuscitation Status Routine Resus Stat 10/20/20 13:25 Ordered Medication Orders Acetaminophen (Acetaminophen 325 Mg Tab) 650 mg PO Q4H PRN PRN Reason: Pain Amlodipine Besylate (Amlodipine 5 Mg Tab) 5 mg PO DAILY [facility] Apixaban (Apixaban 5 Mg Tab) 2.5 mg PO BID [facility] Aspirin (Aspirin 81 Mg Tab.Ec) 81 mg PO DAILY [facility] Atorvastatin Calcium (Atorvastatin 20 Mg Tab) 20 mg PO BEDTIME [facility] Glipizide (Glipizide 10 Mg Tab) 10 mg PO WITHBREAKFAST [facility] Hydrochlorothiazide (Hydrochlorothiazide 25 Mg Tab) 25 mg PO DAILY [facility] Lisinopril (Lisinopril 40 Mg Tab) 40 mg PO DAILY [facility] Metformin HCl (Metformin 1,000 Mg Tab) 1,000 mg PO BIDMEALS [facility] Metoprolol Tartrate (Metoprolol Tartrate 50 Mg Tab) 50 mg PO BID [facility] Multivitamins/Minerals/Vitamin C (Multivitamin Tab) 1 tab PO DAILY [facility] Oxycodone HCl (Oxycodone 5 Mg Tab) 5 mg PO Q4H PRN PRN Reason: Pain Polyethylene Glycol (Polyethylene Glycol 3350 Powder 17 Gm Packet) 17 gm PO DAILY PRN PRN Reason: Constipation Senna/Docusate Sodium (Docusate Sodium/Sennosides 50-8.6 Mg Tab) 1 tab PO BID [facility] Assessment/Plan Comment:: 1. Admit to swing bed 2. PT/OT 3. Usual care. 4. Up with assist. 5. Diabetic diet with Accu-Cheks twice a day. 6. Med reconciliation done and all his home meds restarted. 7. I think him being cold is not pathological this point. But we'll watch closely. - Mortality Measure Prognosis:: Good
[2020-10-20] MEDS: oxyCODONE 5 MG Tab PO PRN (17:46)
[2020-10-20] MEDS: metFORMIN 1,000 MG Tab PO SCH (17:48)
[2020-10-20] MEDS: Acetaminophen 325 MG Tab PO PRN (17:54)
[2020-10-20] MEDS: Apixaban 5 MG Tab PO SCH (21:23)
[2020-10-20] MEDS: atorvaSTATin 20 MG Tab PO SCH (21:25)
[2020-10-20] MEDS: Metoprolol Tartrate 50 MG Tab PO SCH (21:25)
[2020-10-21] MEDS: metFORMIN 1,000 MG Tab PO SCH ×2 (08:19→18:15)
[2020-10-21] MEDS: Apixaban 5 MG Tab PO SCH ×2 (08:19→20:02)
[2020-10-21] MEDS: amLODIPine 5 MG Tab PO SCH (08:20)
[2020-10-21] MEDS: Acetaminophen 325 MG Tab PO PRN ×2 (08:20→15:26)
[2020-10-21] MEDS: Hydrochlorothiazide 25 MG Tab PO SCH (08:20)
[2020-10-21] MEDS: Metoprolol Tartrate 50 MG Tab PO SCH ×2 (08:20→20:02)
[2020-10-21] MEDS: Multivitamin Tab PO SCH (08:20)
[2020-10-21] MEDS: atorvaSTATin 20 MG Tab PO SCH (20:02)
[2020-10-22] MEDS: oxyCODONE 5 MG Tab PO PRN ×3 (08:05→21:02)
[2020-10-22] MEDS: metFORMIN 1,000 MG Tab PO SCH ×2 (08:14→17:40)
[2020-10-22] MEDS: Apixaban 5 MG Tab PO SCH ×2 (08:15→20:47)
[2020-10-22] MEDS: Hydrochlorothiazide 25 MG Tab PO SCH (08:15)
[2020-10-22] MEDS: Metoprolol Tartrate 50 MG Tab PO SCH ×2 (08:15→20:47)
[2020-10-22] MEDS: Multivitamin Tab PO SCH (08:16)
[2020-10-22] MEDS: amLODIPine 5 MG Tab PO SCH (08:16)
[2020-10-22] MEDS: atorvaSTATin 20 MG Tab PO SCH (20:48)
[2020-10-23] MEDS: metFORMIN 1,000 MG Tab PO SCH ×2 (08:37→17:46)
[2020-10-23] MEDS: Apixaban 5 MG Tab PO SCH ×2 (08:38→20:25)
[2020-10-23] MEDS: Multivitamin Tab PO SCH (08:38)
[2020-10-23] MEDS: Metoprolol Tartrate 50 MG Tab PO SCH ×2 (08:45→20:25)
[2020-10-23] MEDS: Hydrochlorothiazide 25 MG Tab PO SCH (08:45)
[2020-10-23] MEDS: amLODIPine 5 MG Tab PO SCH (08:45)
[2020-10-23] MEDS: Ibuprofen 200 MG Tab PO SCH ×3 (09:36→20:25)
[2020-10-23] MEDS: Acetaminophen 325 MG Tab PO SCH ×3 (09:37→20:25)
[2020-10-23] MEDS: atorvaSTATin 20 MG Tab PO SCH (20:25)
[2020-10-24] MEDS: Acetaminophen 325 MG Tab PO SCH ×4 (03:00→20:17)
[2020-10-24] MEDS: Ibuprofen 200 MG Tab PO SCH ×4 (03:00→20:17)
[2020-10-24] MEDS: metFORMIN 1,000 MG Tab PO SCH ×2 (08:41→17:14)
[2020-10-24] MEDS: Apixaban 5 MG Tab PO SCH ×2 (08:42→20:16)
[2020-10-24] MEDS: Hydrochlorothiazide 25 MG Tab PO SCH (08:42)
[2020-10-24] MEDS: Metoprolol Tartrate 50 MG Tab PO SCH ×2 (08:42→20:16)
[2020-10-24] MEDS: amLODIPine 5 MG Tab PO SCH (08:43)
[2020-10-24] MEDS: Multivitamin Tab PO SCH (08:44)
[2020-10-24] MEDS: atorvaSTATin 20 MG Tab PO SCH (20:16)
[2020-10-25] MEDS: Ibuprofen 200 MG Tab PO SCH ×4 (03:55→21:42)
[2020-10-25] MEDS: Acetaminophen 325 MG Tab PO SCH ×4 (03:55→21:43)
[2020-10-25] MEDS: Hydrochlorothiazide 25 MG Tab PO SCH (08:54)
[2020-10-25] MEDS: Multivitamin Tab PO SCH (08:55)
[2020-10-25] MEDS: amLODIPine 5 MG Tab PO SCH (08:55)
[2020-10-25] MEDS: Metoprolol Tartrate 50 MG Tab PO SCH ×2 (08:55→21:41)
[2020-10-25] MEDS: metFORMIN 1,000 MG Tab PO SCH ×2 (08:56→17:56)
[2020-10-25] MEDS: Apixaban 5 MG Tab PO SCH ×2 (08:56→21:40)
[2020-10-25] MEDS ORDERED: Acetaminophen/HYDROcodone 325-5 MG Tab PO PRN (09:40)
[2020-10-25] MEDS: atorvaSTATin 20 MG Tab PO SCH (21:41)
[2020-10-26] MEDS: Acetaminophen 325 MG Tab PO SCH ×4 (04:04→21:14)
[2020-10-26] MEDS: Ibuprofen 200 MG Tab PO SCH ×4 (04:04→21:13)
[2020-10-26] MEDS: Hydrochlorothiazide 25 MG Tab PO SCH (08:49)
[2020-10-26] MEDS: amLODIPine 5 MG Tab PO SCH (08:50)
[2020-10-26] MEDS: Multivitamin Tab PO SCH (08:51)
[2020-10-26] MEDS: Metoprolol Tartrate 50 MG Tab PO SCH ×2 (08:51→21:12)
[2020-10-26] MEDS: metFORMIN 1,000 MG Tab PO SCH ×2 (08:51→17:42)
[2020-10-26] MEDS: Apixaban 5 MG Tab PO SCH ×2 (08:51→21:12)
[2020-10-26] MEDS: atorvaSTATin 20 MG Tab PO SCH (21:12)
[2020-10-27] MEDS: Ibuprofen 200 MG Tab PO SCH (03:26)
[2020-10-27] MEDS: Acetaminophen 325 MG Tab PO SCH (03:29)
[2020-10-27] MEDS: Hydrochlorothiazide 25 MG Tab PO SCH (08:37)
[2020-10-27] MEDS: Apixaban 5 MG Tab PO SCH ×2 (08:38→20:08)
[2020-10-27] MEDS: Multivitamin Tab PO SCH (08:39)
[2020-10-27] MEDS: amLODIPine 5 MG Tab PO SCH (08:39)
[2020-10-27] MEDS: metFORMIN 1,000 MG Tab PO SCH ×2 (08:40→17:59)
[2020-10-27] MEDS: Metoprolol Tartrate 50 MG Tab PO SCH ×2 (08:40→20:09)
--- NOTE | 2020-10-27 10:42 | PCM.PN ---
- General Info Date of Service: 10/27/20 Subjective Update: Bakari had some scrotal edema last week which resolved on its own, stated he had similar episodes after his previous 2 back surgeries. He also has been having swelling of the left leg which he had replacement on which is expected postoperatively. We started KIEL wraps yesterday and he feels the swelling has improved in that leg today. No pain. He denies any pain, no pain prior to his pain medications. He has not taken any hydrocodone/APAP since discontinuing o xycodone. His last narcotics were on 10/22. He has been using ice to left leg. No chest pain, shortness of breath or chest pain. Bowel movements are regular, he has not been using MiraLax or Senna. - Patient Data Vitals - Most Recent: Last Vital Signs Temp 99.6 F 10/27/20 09:00 Pulse 72 10/27/20 09:00 Resp 18 10/27/20 09:00 BP 133/72 10/27/20 09:00 Pulse Ox 94 L 10/27/20 09:00 Weight - Most Recent: 273 lb 12.8 oz Med Orders - Current: Current Medications Acetaminophen (Acetaminophen 325 Mg Tab) 650 mg PO TID PRN PRN Reason: Pain Amlodipine Besylate (Amlodipine 5 Mg Tab) 5 mg PO DAILY [facility] Last Admin: 10/27/20 08:39 Dose: 5 mg Documented by: Apixaban (Apixaban 5 Mg Tab) 2.5 mg PO BID [facility] Stop: 11/22/20 21:01 Last Admin: 10/27/20 08:38 Dose: 2.5 mg Documented by: Aspirin (Aspirin 81 Mg Tab.Ec) 81 mg PO DAILY [facility] Atorvastatin Calcium (Atorvastatin 20 Mg Tab) 20 mg PO BEDTIME [facility] Last Admin: 10/26/20 21:12 Dose: 20 mg Documented by: Glipizide (Glipizide 10 Mg Tab) 10 mg PO WITHBREAKFAST [facility] Last Admin: 10/27/20 08:41 Dose: 10 mg Documented by: Hydrochlorothiazide (Hydrochlorothiazide 25 Mg Tab) 25 mg PO DAILY [facility] Last Admin: 10/27/20 08:37 Dose: 25 mg Documented by: Ibuprofen (Ibuprofen 200 Mg Tab) 200 mg PO TID PRN PRN Reason: Pain Lisinopril (Lisinopril 40 Mg Tab) 40 mg PO DAILY [facility] Last Admin: 10/27/20 08:42 Dose: 40 mg Documented by: Metformin HCl (Metformin 1,000 Mg Tab) 1,000 mg PO BIDMEALS [facility] Last Admin: 10/27/20 08:40 Dose: 1,000 mg Documented by: Metoprolol Tartrate (Metoprolol Tartrate 50 Mg Tab) 50 mg PO BID [facility] Last Admin: 10/27/20 08:40 Dose: 50 mg Documented by: Multivitamins/Minerals/Vitamin C (Multivitamin Tab) 1 tab PO DAILY [facility] Last Admin: 10/27/20 08:39 Dose: 1 tab Documented by: Polyethylene Glycol (Polyethylene Glycol 3350 Powder 17 Gm Packet) 17 gm PO DAILY PRN PRN Reason: Constipation Senna/Docusate Sodium (Docusate Sodium/Sennosides 50-8.6 Mg Tab) 1 tab PO BID PRN PRN Reason: Constipation Discontinued Medications Acetaminophen (Acetaminophen 325 Mg Tab) 650 mg PO Q4H PRN PRN Reason: Pain Last Admin: 10/21/20 15:26 Dose: 650 mg Documented by: Acetaminophen (Acetaminophen 325 Mg Tab) 650 mg PO Q6H [facility] Last Admin: 10/25/20 10:04 Dose: 650 mg Documented by: Acetaminophen (Acetaminophen 325 Mg Tab) 650 mg PO Q6H [facility] Last Admin: 10/27/20 03:29 Dose: 650 mg Documented by: Hydrocodone Bitart/Acetaminophen (Acetaminophen/Hydrocodone 325-5 Mg Tab) 1 tab PO Q6H PRN PRN Reason: SEVERE PAIN Ibuprofen (Ibuprofen 200 Mg Tab) 200 mg PO Q6H [facility] Last Admin: 10/25/20 10:05 Dose: 200 mg Documented by: Ibuprofen (Ibuprofen 200 Mg Tab) 200 mg PO Q6H [facility] Last Admin: 10/27/20 03:26 Dose: 200 mg Documented by: Oxycodone HCl (Oxycodone 5 Mg Tab) 5 mg PO Q4H PRN PRN Reason: Pain Last Admin: 10/22/20 21:02 Dose: 5 mg Documented by: Senna/Docusate Sodium (Docusate Sodium/Sennosides 50-8.6 Mg Tab) 1 tab PO BID [facility] Last Admin: 10/23/20 08:38 Dose: 1 tab Documented by: - Exam General: Alert, Oriented, Cooperative Lungs: Clear to Auscultation, Normal Respiratory Effort Cardiovascular: Regular Rate, Regular Rhythm GI/Abdominal Exam: Normal Bowel Sounds, Soft, Non-Tender, No Distention Extremities: Normal Capillary Refill, Pedal Edema (left lower leg, KIEL wrap in place) Sepsis Event Note - Evaluation Sepsis Screening Result: No Definite Risk - Focused Exam Vital Signs: Vital Signs Temp Pulse Pulse Resp BP BP Pulse Ox 10/27/20 09:00 99.6 F 72 18 133/72 94 L 10/27/20 08:40 72 133/72 10/27/20 08:39 133/72 - Problem List & Annotations (1) Hypertension SNOMED Code(s): 54443851 Code(s): I10 - ESSENTIAL (PRIMARY) HYPERTENSION Status: Acute Current Visit: Yes (2) H/O arthroplasty SNOMED Code(s): 498915452, 206439416, 960706458 Code(s): Z98.890 - OTHER SPECIFIED POSTPROCEDURAL STATES Status: Chronic Current Visit: Yes (3) Diabetes SNOMED Code(s): 51884175 Code(s): E11.9 - TYPE 2 DIABETES MELLITUS WITHOUT COMPLICATIONS Status: Chronic Current Visit: Yes Qualifiers: Diabetes mellitus type: type 2 Diabetes mellitus intermediate project manager insulin use: without intermediate use (4) Hyperlipemia SNOMED Code(s): 46569094 Code(s): E78.5 - HYPERLIPIDEMIA, UNSPECIFIED Status: Chronic Current Visit: Yes - Problem List Review Problem List Initiated/Reviewed/Updated: Yes - My Orders Last 24 Hours: My Active Orders 10/27/20 09:31 Acetaminophen [TylenoL] 650 mg PO TID PRN Ibuprofen [Motrin] 200 mg PO TID PRN - Plan Plan:: 1. S/p left JOE: Continue PT/OT. Change Tylenol & Ibuprofen to tid as needed. KIEL wrap to left leg on during day and off at night. ICE as needed to left leg. Eliquis 2.5 bid until 11/22. 2. Chronic conditions: continue home medications.
[2020-10-27] MEDS: atorvaSTATin 20 MG Tab PO SCH (20:08)
[2020-10-27] MEDS: Acetaminophen 325 MG Tab PO PRN (20:09)
[2020-10-27] MEDS: Ibuprofen 200 MG Tab PO PRN (20:09)
[2020-10-28] MEDS: Apixaban 5 MG Tab PO SCH ×2 (08:05→20:21)
[2020-10-28] MEDS: amLODIPine 5 MG Tab PO SCH (08:05)
[2020-10-28] MEDS: metFORMIN 1,000 MG Tab PO SCH ×2 (08:06→18:30)
[2020-10-28] MEDS: Metoprolol Tartrate 50 MG Tab PO SCH ×2 (08:06→20:22)
[2020-10-28] MEDS: Multivitamin Tab PO SCH (08:08)
[2020-10-28] MEDS: Hydrochlorothiazide 25 MG Tab PO SCH (08:08)
[2020-10-28] MEDS: Acetaminophen 325 MG Tab PO PRN ×2 (09:26→20:29)
[2020-10-28] MEDS: Ibuprofen 200 MG Tab PO PRN ×2 (09:27→20:27)
[2020-10-28] MEDS: atorvaSTATin 20 MG Tab PO SCH (20:22)
[2020-10-29] MEDS: Ibuprofen 200 MG Tab PO PRN (06:19)
[2020-10-29] MEDS: Acetaminophen 325 MG Tab PO PRN (06:20)
[2020-10-29] MEDS: metFORMIN 1,000 MG Tab PO SCH (07:58)
[2020-10-29] MEDS: Apixaban 5 MG Tab PO SCH (08:03)
[2020-10-29] MEDS: Hydrochlorothiazide 25 MG Tab PO SCH (08:03)
[2020-10-29] MEDS: amLODIPine 5 MG Tab PO SCH (08:04)
[2020-10-29] MEDS: Metoprolol Tartrate 50 MG Tab PO SCH (08:04)
[2020-10-29] MEDS: Multivitamin Tab PO SCH (08:04)
[2020-10-29 08:05] VITALS: BP 149/78; PULSE 76
--- NOTE | 2020-10-29 08:57 | PCM.DCSUM1 ---
Discharge Summary - Hospital Course HPI Initial Comments: This Is a 80-year-old male patient that had a left hip arthroplasty. He was transferred down from [facility] for swing bed. He is doing well. He says he does have some pain. He does state he has some chills but no fevers. He had the chills when he is up in [place]. He denies runny nose, sore throat, cough, chest pain, dysuria, pyuria or hematuria, diarrhea. Diagnosis: Stroke: No - Discharge Data Discharge Date: 10/29/20 Discharge Disposition: Home, Self-Care 01 Condition: Good - Referral to Home Health Primary Care Physician: Chavo Lazar MD - Discharge Diagnosis/Problem(s) (1) H/O arthroplasty SNOMED Code(s): 313840700, 536424144, 611551412 ICD Code: Z98.890 - OTHER SPECIFIED POSTPROCEDURAL STATES Status: Chronic Current Visit: Yes Onset Date: ~10/18/20 (2) Hypertension SNOMED Code(s): 97619080 ICD Code: I10 - ESSENTIAL (PRIMARY) HYPERTENSION Status: Chronic Current Visit: Yes (3) Diabetes SNOMED Code(s): 71090207 ICD Code: E11.9 - TYPE 2 DIABETES MELLITUS WITHOUT COMPLICATIONS Status: Chronic Current Visit: Yes Qualifiers: Diabetes mellitus type: type 2 Diabetes mellitus chcf insulin use: without chcf use (4) Hyperlipemia SNOMED Code(s): 36821667 ICD Code: E78.5 - HYPERLIPIDEMIA, UNSPECIFIED Status: Chronic Current Visit: Yes - Patient Summary/Data Consults: Consultations 10/20/20 13:25 OT Evaluation and Treatment [CONS] Routine Please Evaluate and Treat. OT Reason for Consult: ADL's This query below is only for informational purposes and is not editable. PT Evaluation and Treatment [CONS] Routine Please Evaluate and Treat. PT Reason for Consult: Ambulation This query below is only for informational purposes and is not editable. Hospital Course: Bakari has progressed well with his therapy, will transition to Outpatient PT at discharge. He had some scrotal edema postoperatively, which resolved on its own. He had left leg edema which was expected postoperatively, improved with KIEL wraps to full leg on during the day and off at night. He was switched to Tylenol & Ibuprofen scheduled every 6 hours as he was having hypotension with the oxycodone. Once switched he did not require any oxycodone and was discontinued. His Tylenol & Ibuprofen was changed to tid as needed and has been only using twice a day. His blood sugars have been well controlled. He will be on Eliquis 2.5 mg bid through 11/23. Follow up with Orthopedics on 11/03. - Patient Instructions Diet: Diabetic Diet Activity: As Tolerated Driving: Do Not Drive Showering/Bathing: May Shower Wound/Incision Care: Keep Operative Site/Wound Site Clean and Dry Notify Provider of: Fever, Increased Pain, Swelling and Redness, Nausea and/or Vomiting Other/Special Instructions: Follow up with Orthopedics on 11/03 as previously scheduled. - Discharge Plan *PRESCRIPTION DRUG MONITORING PROGRAM REVIEWED*: Not Applicable *COPY OF PRESCRIPTION DRUG MONITORING REPORT IN PATIENT MOLLY: Not Applicable Prescriptions/Med Rec: Apixaban [Eliquis] 2.5 mg PO BID #50 tab Home Medications: Home Meds Lisinopril 40 mg PO DAILY 12/18/13 [History] Metoprolol Tartrate 50 mg PO BID 12/18/13 [History] Multivitamin [Multivitamins] 1 each PO DAILY 12/18/13 [History] amLODIPine [Norvasc] 5 mg PO DAILY 12/18/13 [History] Aspirin [Ecotrin EC] 81 mg PO DAILY 04/21/15 [History] Hydrochlorothiazide 25 mg PO DAILY 04/21/15 [History] Acetaminophen [Tylenol] 650 mg PO Q4H PRN 10/20/20 [History] atorvaSTATin [Lipitor] 20 mg PO BEDTIME 10/20/20 [History] glipiZIDE [Glucotrol] 10 mg PO WITHBREAKFAST 10/20/20 [History] metFORMIN HCl [Metformin HCl] 1,000 mg PO BIDMEALS 10/20/20 [History] polyethylene glycoL 3350 [MiraLAX] 17 g PO DAILY PRN 10/20/20 [History] Apixaban [Eliquis] 2.5 mg PO BID #50 tab 10/29/20 [Rx] Ibuprofen [Motrin] 200 mg PO TID PRN tablet 10/29/20 [Rx] Oxygen Therapy Mode: Room Air Patient Handouts: Total Hip Replacement, [id number], Type 2 Diabetes Mellitus, Self-Care, Pediatric, [id number], Fall Prevention in Hospitals, Adult, Apixaban oral tablets, Venous Thromboembolism Prevention - Discharge Summary/Plan Comment DC Time >30 min.: No Total # of Minutes for Discharge Time: 20 min - General Info Date of Service: 10/29/20 Subjective Update: Bakari is feeling well. No chest pain, shortness of breath, having regular bowel movements. His pain is well controlled, he has not used any oxycodone since 10/22. He has been using Tylenol & Ibuprofen twice a day, it is ordered tid as needed. His swelling in his leg is improved, noticed he has been urinating more since we started the KIEL wraps so feels he is getting rid of the fluid. His is coming to get him at 2pm today. Will be doing outpatient PT. Functional Status: Reports: Pain Controlled, Tolerating Diet, Ambulating, Urinating. Denies: New Symptoms - Patient Data Vitals - Most Recent: Last Vital Signs Temp 99.6 F 10/28/20 09:00 Pulse 76 10/29/20 08:04 Resp 18 10/28/20 09:00 BP 149/78 H 10/29/20 08:04 Pulse Ox 95 10/28/20 09:00 Weight - Most Recent: 273 lb 1.6 oz Med Orders - Current: Current Medications Acetaminophen (Acetaminophen 325 Mg Tab) 650 mg PO TID PRN PRN Reason: Pain Last Admin: 10/29/20 06:20 Dose: 650 mg Documented by: Amlodipine Besylate (Amlodipine 5 Mg Tab) 5 mg PO DAILY [facility] Last Admin: 10/29/20 08:04 Dose: 5 mg Documented by: Apixaban (Apixaban 5 Mg Tab) 2.5 mg PO BID [facility] Stop: 11/22/20 21:01 Last Admin: 10/29/20 08:03 Dose: 2.5 mg Documented by: Aspirin (Aspirin 81 Mg Tab.Ec) 81 mg PO DAILY [facility] Atorvastatin Calcium (Atorvastatin 20 Mg Tab) 20 mg PO BEDTIME [facility] Last Admin: 10/28/20 20:22 Dose: 20 mg Documented by: Glipizide (Glipizide 10 Mg Tab) 10 mg PO WITHBREAKFAST [facility] Last Admin: 10/29/20 07:59 Dose: 10 mg Documented by: Hydrochlorothiazide (Hydrochlorothiazide 25 Mg Tab) 25 mg PO DAILY [facility] Last Admin: 10/29/20 08:03 Dose: 25 mg Documented by: Ibuprofen (Ibuprofen 200 Mg Tab) 200 mg PO TID PRN PRN Reason: Pain Last Admin: 10/29/20 06:19 Dose: 200 mg Documented by: Lisinopril (Lisinopril 40 Mg Tab) 40 mg PO DAILY [facility] Last Admin: 10/29/20 08:04 Dose: 40 mg Documented by: Metformin HCl (Metformin 1,000 Mg Tab) 1,000 mg PO BIDMEALS [facility] Last Admin: 10/29/20 07:58 Dose: 1,000 mg Documented by: Metoprolol Tartrate (Metoprolol Tartrate 50 Mg Tab) 50 mg PO BID [facility] Last Admin: 10/29/20 08:04 Dose: 50 mg Documented by: Multivitamins/Minerals/Vitamin C (Multivitamin Tab) 1 tab PO DAILY [facility] Last Admin: 10/29/20 08:04 Dose: 1 tab Documented by: Polyethylene Glycol (Polyethylene Glycol 3350 Powder 17 Gm Packet) 17 gm PO DAILY PRN PRN Reason: Constipation Senna/Docusate Sodium (Docusate Sodium/Sennosides 50-8.6 Mg Tab) 1 tab PO BID PRN PRN Reason: Constipation Discontinued Medications Acetaminophen (Acetaminophen 325 Mg Tab) 650 mg PO Q4H PRN PRN Reason: Pain Last Admin: 10/21/20 15:26 Dose: 650 mg Documented by: Acetaminophen (Acetaminophen 325 Mg Tab) 650 mg PO Q6H [facility] Last Admin: 10/25/20 10:04 Dose: 650 mg Documented by: Acetaminophen (Acetaminophen 325 Mg Tab) 650 mg PO Q6H [facility] Last Admin: 10/27/20 03:29 Dose: 650 mg Documented by: Hydrocodone Bitart/Acetaminophen (Acetaminophen/Hydrocodone 325-5 Mg Tab) 1 tab PO Q6H PRN PRN Reason: SEVERE PAIN Ibuprofen (Ibuprofen 200 Mg Tab) 200 mg PO Q6H [facility] Last Admin: 10/25/20 10:05 Dose: 200 mg Documented by: Ibuprofen (Ibuprofen 200 Mg Tab) 200 mg PO Q6H [facility] Last Admin: 10/27/20 03:26 Dose: 200 mg Documented by: Oxycodone HCl (Oxycodone 5 Mg Tab) 5 mg PO Q4H PRN PRN Reason: Pain Last Admin: 10/22/20 21:02 Dose: 5 mg Documented by: Senna/Docusate Sodium (Docusate Sodium/Sennosides 50-8.6 Mg Tab) 1 tab PO BID [facility] Last Admin: 10/23/20 08:38 Dose: 1 tab Documented by: - Exam General: Reports: Alert, Oriented, Cooperative, No Acute Distress Lungs: Reports: Clear to Auscultation, Normal Respiratory Effort Cardiovascular: Reports: Regular Rate, Regular Rhythm GI/Abdominal Exam: Normal Bowel Sounds, Soft, Non-Tender, No Distention (Male) Exam: Deferred Rectal (Males) Exam: Deferred Extremities: Pedal Edema (2+ BLE, improved ) Skin: Reports: Warm, Dry, Intact Wound/Incisions: Reports: Healing Well
[2020-11-23] MEDS ORDERED: Aspirin 81 MG Tab.EC PO SCH (09:00)
== END 2020-10-29 14:15 | disposition home or self-care (01) | DRG 561 ==
LOC: FB.MS 12:34
PROVIDERS: ADMIT Family Medicine; ATTEND Family Medicine
DX: Z47.1 Aftercare following joint replacement surgery (principal); Z96.642 Presence of left artificial hip joint; I10 Essential (primary) hypertension; E11.9 Type 2 diabetes mellitus without complications; E78.5 Hyperlipidemia, unspecified; H54.7 Unspecified visual loss; Z96.659 Presence of unspecified artificial knee joint; E66.9 Obesity, unspecified; M54.9 Dorsalgia, unspecified; G89.29 Other chronic pain; N50.89 Other specified disorders of the male genital organs; G47.8 Other sleep disorders; I95.9 Hypotension, unspecified; Z88.0 Allergy status to penicillin; Z79.82 Long term (current) use of aspirin; Z79.899 Other long term (current) drug therapy; Z86.718 Personal history of other venous thrombosis and embolism; Z79.01 Long term (current) use of anticoagulants; Z98.890 Other specified postprocedural states; Z68.37 Body mass index [BMI] 37.0-37.9, adult
CPT/HCPCS: 82947; 97110-GP; 97116-GP; 97161-GP; 97165-GO; 97530-GO; 97530-GP; 97535-GO; A9270-GY